=== PATIENT | female | born 1965 | race Caucasian/White ===

== ENCOUNTER 2017-01-23 20:44 | Inpatient (IN) | payer BC ==
[~2017-01-23] VITALS: Ht 154.9 cm; Wt 81.9 kg
[2017-01-23 21:37] LABS: HEMATOCRIT 41.7 % (37-47); MEAN CELL VOLUME 90.1 fL (80-100); MEAN CORPUSCULAR HGB CONC 33.3 g/dl (32-36); PLATELET COUNT 325 K/uL (130-400); RED BLOOD COUNT 4.63 M/uL (4.2-5.4); WHITE BLOOD COUNT 11.44 K/uL (4.8-10.8)
[2017-01-23 21:45] LABS: PROTHROMBIN TIME (PATIENT) 10.5 SECONDS (9.0-12.0)
--- NOTE | 2017-01-23 21:52 | DIAGNOSTIC IMAGING REPORT ---
HEAD WITHOUT CONTRAST (CT) CT DOSE: 614.27 mGy.cm HISTORY: Mental status change ams TECHNIQUE: Multiaxial CT images of the head were performed without the use of intravenous contrast. A dose lowering technique was utilized adhering to the principles of ALARA. Comparison: None. Findings: Sclerosis left mastoid air cells. Moderate mucosal thickening of the sphenoid and posterior ethmoid sinuses. The calvarium and skull base are intact. The ventricles and sulci are within normal limits. There is no mass, hematoma, midline shift, or acute infarct. Impression: No acute intracranial abnormality. The above report was generated using voice recognition software. It may contain grammatical, syntax or spelling errors. Electronically signed by: Andres Mckeon M.D. 01/23/2017 9:51 PM Dictated Date/Time: 01/23/2017 9:50 PM
[2017-01-23 21:53] LABS: BUN/CREATININE RATIO 19.6 (10-20); CALCIUM 8.3 mg/dl (8.5-10.1); CREATININE 1.3 mg/dl (0.60-1.20); POTASSIUM 3.7 mmol/L (3.5-5.1)
[2017-01-23 21:57] LABS: ALB/GLOB RATIO 0.5 (0.9-2)
[2017-01-23] MEDS ORDERED: ACET-1256 PO (22:33)
[2017-01-23] MEDS ORDERED: METO25TA3 PO (22:33)
[2017-01-23] MEDS ORDERED: FLUO0.059 TOP (22:33)
[2017-01-23] MEDS ORDERED: IPRASOL4 INH (22:33)
[2017-01-23] MEDS ORDERED: NVLGI/PEN SQ (22:33)
[2017-01-23] MEDS ORDERED: FAMO20TA11 PO (22:33)
[2017-01-23] MEDS ORDERED: FRS/40 PO (22:33)
[2017-01-23] MEDS ORDERED: DOCU100C31 PO (22:33)
[2017-01-23] MEDS ORDERED: SENN8.6T36 PO (22:33)
[2017-01-23] MEDS ORDERED: OXYC1TAB3 PO (22:33)
[2017-01-23] MEDS ORDERED: SYN100 PO (22:33)
[2017-01-23] MEDS ORDERED: ASPI81TA28 PO (22:33)
[2017-01-23] MEDS ORDERED: GLIM2TAB2 PO (22:33)
[2017-01-23] MEDS ORDERED: LISI-725 PO (22:33)
[2017-01-23] MEDS ORDERED: ATOR-24 PO (22:33)
[2017-01-23 22:50] LABS: MANUAL MICROSCOPIC REQUIRED? YES; URINE APPEARANCE SL CLOUDY (CLEAR); URINE BILIRUBIN NEG (NEG); URINE COLOR YELLOW; URINE NITRITE NEG (NEG); UROBILINOGEN NEG (NEG)
[2017-01-23 22:52] LABS: REVIEW REQ? NO
[2017-01-23] MEDS ORDERED: ASPIRIN 81 MG CHEW PO STA (23:51)
[2017-01-23] MEDS ORDERED: LEVAQUIN 750MG / 150ML D5W IV STA (23:51)
[2017-01-24] VITALS (14 sets, daily range): BP systolic 151–193; BP diastolic 85–105; PULSE 62–93; TEMP 36.5–37.5; O2SAT 90–98; BMI 32.6
[2017-01-24 00:18] LABS: URINE APPEARANCE CLOUDY (CLEAR); URINE BILIRUBIN NEG (NEG); URINE COLOR YELLOW; URINE EPITHELIAL CELL AUTO >30 /lpf (0-5); URINE NITRITE NEG (NEG); URINE PH 6.5 (4.5-7.5); URINE SPECIFIC GRAVITY 1.025 (1.000-1.030); UROBILINOGEN NEG (NEG); ZZUR CULT IF INDIC CLEAN CATCH YES
[2017-01-24 00:20] LABS: MANUAL MICROSCOPIC REQUIRED? NO; REVIEW REQ? NO
[2017-01-24] MEDS ORDERED: ONDANSETRON INJ 2 MG/ML 2 ML VIAL IV PRN (00:45)
[2017-01-24] MEDS ORDERED: OXYCODONE HCL IR 5 MG TAB (IMMEDIATE RELEASE) PO PRN (01:00)
[2017-01-24] MEDS ORDERED: ACETAMINOPHEN 500 MG TAB PO PRN (01:00)
[2017-01-24] MEDS ORDERED: IV FLUIDS COMPLETED PRN (01:45)
[2017-01-24] MEDS: NSS + 20MEQ KCL 1000ML 1,000 ML IV SCH ×2 (01:58→14:21)
--- NOTE | 2017-01-24 02:12 | HISTORY & PHYSICAL EXAMINATION ---
DATE OF ADMISSION: 01/24/2017 PRIMARY CARE PROVIDER: Dr. Gutiérrez from [place]. CHIEF COMPLAINT: Transient confusion with cough and weakness noted this evening. HISTORY OF PRESENT COMPLAINT: She is a 51-year-old female with significant past medical history of type 2 diabetes with retinopathy, moderate COPD with ongoing smoking, recent history of closed nondisplaced fracture of the cervical vertebra and multiple rib fractures and fibular fracture following a fall that happened on 01/13/2017, also hypothyroidism and reflux disease. Apparently was in [facility] following transfer from [place] after the multiple fractures following injury. This afternoon or this evening she was noted to have acute confusion in the [facility] with some slurring of speech without any significant lab abnormality. From that point, she was transferred to [facility] Emergency Room for further evaluation. In the Emergency Room, she was alert, awake, oriented. She did not have any focal neurological deficit. She was generally weak and she was noted to have acute bronchitis/pneumoniae involving the right upper lobe with slight elevation of the white count. From that point, she was started with intravenous antibiotic and she was advised for admission. PAST MEDICAL HISTORY: Significant for type 2 diabetes with retinopathy, moderate COPD, tobacco use disorder, recent history of closed cervical fracture, multiple rib fractures, and also fracture of the left humerus, hypothyroidism, GERD, hyperlipidemia. PAST SURGICAL HISTORY: Significant for foot and toe surgery on the left side and division of ankle joint on left side in 1997. FAMILY HISTORY: Mother has diabetes and mother has high blood pressure as well. Father had lung disorder. SOCIAL HISTORY: She is . She resides in [facility] following that multiple trauma. She smokes over 1-1/2 pack per day for the last 20 years. She uses alcohol occasionally, and recently her activities of daily living limited due to multiple fractures as mentioned earlier. ALLERGIES: ADHESIVES. MEDICATIONS: She has been taking Tylenol 1000 mg q. 8 hourly as needed, aspirin 81 mg daily, Lipitor 40 mg daily, docusate sodium 100 mg twice daily, Pepcid 20 mg twice daily, Lasix 40 mg daily, glimepiride 2 mg daily, NovoLog FlexPen as directed, DuoNeb nebulized solutions 3 mL q. 4 hourly as needed, Synthroid 100 mcg daily, lisinopril 20 mg pill 60 mg daily, Toprol-XL 75 mg q. 12 hours, Roxicodone 5 mg q. 4 hourly p.r.n., senna 1 tablet p.o. at bedtime, and fluocinonide 0.05% gel 1 dose topical b.i.d. REVIEW OF SYSTEMS: Other systemic review unremarkable except those mentioned in history of present complaint. PHYSICAL EXAMINATION: GENERAL: On examination in the Emergency Room, she has a cervical collar-1 and that will be there for 6 weeks in total. She does have some discomfort from that collar, but no other acute symptoms. VITAL SIGNS: Temperature 37.0, pulse 64, blood pressure 140/83, saturation 98% on room air. HEENT: Remarkable for cervical collar. CHEST: Decreased breath sounds with occasional crackles at the bases. HEART: S1, S2 regular. No murmur. ABDOMEN: Soft, benign, nontender, no organomegaly. Bowel sounds present. EXTREMITIES: Trace edema bilaterally. MUSCULOSKELETAL SYSTEM: Did not show any acute arthritis. CENTRAL NERVOUS SYSTEM: She was alert, awake, oriented. She has minimal dysphagia, but does not have any problem with swallowing. She is generally weak but does not have any focal neurological deficit. LABORATORY DATA: Noted today white count was 11.44, H&H of 13.9/41.7, platelets 325. Sodium 139, potassium 3.7, chloride 102, carbon dioxide 28, BUN 26, creatinine 1.30, her creatinine noted 1.4 on 18 of January. Random glucose 153, calcium 8.3, albumin was 1.9. Coagulation profile unremarkable. UA examination showed WBC more than 30, RBC more than 30, occult blood positive, leukocyte esterase negative, bacteria negative. Chest x-ray: Report is pending, but did show questionable haziness involving the right upper lobe and may have chronic bronchitic changes. EKG: Was in sinus rhythm, rate of 62 per minute, normal axis and no significant ST-T wave changes. CT scan of the head: No acute intracranial abnormality. IMPRESSION AND PLAN: 1. Questionable acute confusion, resolved completely now, does not have any neuro deficit. CT scan has been negative, cannot definitely pinpoint the cause.Will observe in Tele. 2. Chronic obstructive pulmonary disease with exacerbation. May have right upper lobe pneumonia. Blood culture was taken and she was started with intravenous Levaquin which will be continued. She will get bronchodilator and small dose of Solu-Medrol. 3. Hypertension. Blood pressure seems to be stable. Continue with current medication. 4. Type 2 diabetes. Continue with insulin and put her on sliding scale coverage while in the hospital. 5. Status post fall with multiple fractures involving the ribs, cervical spine and also fibula, humerus on the left side. No acute findings at this time. Continue with pain medications and keep the cervical collar as it is. 6. Hypothyroidism. Continue with replacement therapy. 7. Gastroesophageal reflux disease. Continue with Pepcid. 8. Hyperlipidemia. Continue with statin. 9. Deep venous thrombosis prophylaxis with subcutaneous heparin. 10. Gastrointestinal prophylaxis with Pepcid. 11. Code status. She will be a full code. In my clinical assessment, the beneficiary meets criteria as per CMS for 2 [facility] hospital. MTDD
--- NOTE | 2017-01-24 02:26 | EMERGENCY ROOM VISIT NOTE ---
History Report prepared by Jackson: Erika Saenz Under the Supervision of: Dr. Shiv Dixon M.D. First contact with patient: 21:18 Chief Complaint: NEURO SYMPTOMS Stated Complaint: ALTERED MENTAL STATUS, CVA SX, HEADACHE Nursing Triage Summary: patient at [facility] for rehab after fall/cva. today staff noticed patient to be "slightly altered" and speech was as fluent as normal. patient also has complaint of headache. EMS states patient was "slightly aphasic" but according to [facility] that is her baseline now. unknown last known well History of Present Illness The patient is a 51 year old female who presents to the Emergency Room with complaints of an episode of neurological symptoms starting this evening. The patient's family states that the patient has had TIAs in the past. They state that she fell down stairs two weeks ago and was life flighted to [place]. They reports that she fractured her neck, left arm, left knee cap, 4-5 ribs, and her spine. They report that she was moved to [facility] 5 days ago and things were going well. The patient's family complains that the patient is having slurred speech more than usual and confusion. The patient complains of a headache, a cough, and notes that she vomited 3 days ago. The patient currently rates her pain as a 4/10 in severity. The patient denies shortness of breath, chest pain, nausea, diarrhea, and a change in appetite. Source of History: patient, family Onset: this evening Position: other (global) Symptom Intensity: 4/10 Quality: other (global) Timing: other (episode) Associated Symptoms: + headache, + cough, + vomiting, No chest pain, No SOB , No nausea, No diarrhea Note: The patient's family complains of slurred speech and confusion. The patient denies a change in appetite. Review of Systems See HPI for pertinent positives and negatives. A total of ten systems were reviewed and were otherwise negative. Past Medical & Surgical Medical Problems: (1) Change in mental state (2) COPD exacerbation (3) Diabetes (4) Hypothyroidism Family History No pertinent family history Social History Smoking Status: Current Every Day Smoker Alcohol Use: none Drug Use: none Marital Status: Housing Status: assisted Current/Historical Medications Scheduled Aspirin (Aspirin Ec), 81 MG PO DAILY Atorvastatin (Lipitor), 40 MG PO DAILY Docusate Sodium (Docusate Sodium), 100 MG PO BID Famotidine (Pepcid), 20 MG PO Q12 Fluocinonide (Fluocinonide), 1 DOSE TOP BID Furosemide (Lasix), 40 MG PO QAM Glimepiride (Glimepiride), 2 MG PO QAM Insulin Aspart (Novolog Flexpen), 1 DOSE SQ HS Ipratropium-Albuterol (Duoneb), 1 TREATMENT INH Q4H Levothyroxine Sodium (Synthroid), 200 MCG PO QAM Lisinopril (Zestril), 60 MG PO DAILY Metoprolol Succinate (Toprol Xl), 75 MG PO Q12 Sennosides-Docusate Sodium (Docusate Sodium/Senna), 1 TAB PO HS Scheduled PRN Acetaminophen (Tylenol), 1,000 MG PO Q8 PRN for Pain Oxycodone Ir (Roxicodone Ir), 5 MG PO Q4 PRN for Pain Allergies Coded Allergies: Adhesives (Unverified Allergy, Unknown, TEARS SKIN OFF, 01/23/17) Physical Exam Vital Signs Date Time Temp Pulse Resp B/P (MAP) Pulse Ox O2 Delivery O2 Flow Rate FiO2 01/23/17 23:14 64 20 140/83 98 Room Air 01/23/17 22:44 63 22 01/23/17 21:23 Room Air 01/23/17 21:14 62 18 93 Room Air 01/23/17 20:58 62 01/23/17 20:54 37.0 63 18 149/109 93 Room Air 01/23/17 20:49 149/109 Physical Exam GENERAL: Awake, alert, uncomfortable-appearing, in no distress HENT: Normocephalic, atraumatic. Oropharynx unremarkable. Dry mucus membranes. EYES: Normal conjunctiva. Sclera non-icteric. NECK: Supple. No nuchal rigidity. FROM. No JVD. [place] J collar in place RESPIRATORY: Clear to auscultation. CARDIAC: Regular rate, normal rhythm. Extremities warm and well perfused. Pulses equal. ABDOMEN: Soft, non-distended. No tenderness to palpation. No rebound or guarding. No masses. RECTAL: Deferred. MUSCULOSKELETAL: Chest examination reveals no tenderness. The back is symmetrical on inspection without obvious abnormality. There is no CVA tenderness to palpation. No joint edema. LOWER EXTREMITIES: Calves are equal size bilaterally and non-tender. 2+ edema. No discoloration. Abrasions to left knee cap. NEURO: Normal sensorium. No sensory or motor deficits noted. Speech somewhat thick. Unable to assess left leg drift secondary to fracture. No drift in UE. Cranial nerves 2-12 intact. Unable to test SCM bilaterally secondary to cervical collar. SKIN: No rash or jaundice noted. Medical Decision & Procedures ER Provider Diagnostic Interpretation: Radiology results as stated below per my review and radiologist interpretation: HEAD WITHOUT CONTRAST (CT) CT DOSE: 614.27 mGy.cm HISTORY: Mental status change ams TECHNIQUE: Multiaxial CT images of the head were performed without the use of intravenous contrast. A dose lowering technique was utilized adhering to the principles of ALARA. Comparison: None. Findings: Sclerosis left mastoid air cells. Moderate mucosal thickening of the sphenoid and posterior ethmoid sinuses. The calvarium and skull base are intact. The ventricles and sulci are within normal limits. There is no mass, hematoma, midline shift, or acute infarct. Impression: No acute intracranial abnormality. The above report was generated using voice recognition software. It may contain grammatical, syntax or spelling errors. Electronically signed by: Andres Mckeon M.D. 01/23/2017 9:51 PM Dictated Date/Time: 01/23/2017 9:50 PM Chest x-ray. Findings: A chest x-ray was performed and revealed no pneumothorax , effusion, pulmonary edema, free air under the diaphragm, or wide mediastinum. Right upper lobe infiltrate. Laboratory Results 01/23/17 21:20 01/23/17 21:20 Test 01/23/17 21:20 01/23/17 23:44 Red Blood Count 4.63 M/uL (4.2-5.4) Mean Corpuscular Volume 90.1 fL (80-100) Mean Corpuscular Hemoglobin 30.0 pg (25-34) Mean Corpuscular Hemoglobin Concent 33.3 g/dl (32-36) RDW Standard Deviation 46.2 fL (36.4-46.3) RDW Coefficient of Variation 14.0 % (11.5-14.5) Mean Platelet Volume 11.0 fL (7.4-10.4) Prothrombin Time 10.5 SECONDS (9.0-12.0) Prothromb Time International Ratio 1.0 (0.9-1.1) Activated Partial Thromboplast Time 25.4 SECONDS (21.0-31.0) Partial Thromboplastin Ratio 1.0 Anion Gap 9.0 mmol/L (3-11) Est Creatinine Clear Calc Drug Dose 48.8 ml/min Estimated GFR () 55.4 Estimated GFR (Non- 47.8 BUN/Creatinine Ratio 19.6 (10-20) Calcium Level 8.3 mg/dl (8.5-10.1) Total Bilirubin 0.2 mg/dl (0.2-1) Aspartate Amino Transf (AST/SGOT) 16 U/L (15-37) Alanine Aminotransferase (ALT/SGPT) 23 U/L (12-78) Alkaline Phosphatase 108 U/L (45-117) Total Protein 5.4 gm/dl (6.4-8.2) Albumin 1.9 gm/dl (3.4-5.0) Globulin 3.5 gm/dl (2.5-4.0) Albumin/Globulin Ratio 0.5 (0.9-2) Urine Color YELLOW Urine Appearance CLOUDY (CLEAR) Urine pH 6.5 (4.5-7.5) Urine Specific [place] 1.025 (1.000-1.030) Urine Protein 4+ (NEG) Urine Glucose (UA) 2+ (NEG) Urine Ketones NEG (NEG) Urine Occult Blood 2+ (NEG) Urine Nitrite NEG (NEG) Urine Bilirubin NEG (NEG) Urine Urobilinogen NEG (NEG) Urine Leukocyte Esterase NEG (NEG) Urine WBC (Auto) >30 /hpf (0-5) Urine RBC (Auto) >30 /hpf (0-4) Urine Hyaline Casts (Auto) 10-30 /lpf (0-5) Urine Epithelial Cells (Auto) >30 /lpf (0-5) Urine Bacteria (Auto) NEG (NEG) Laboratory results reviewed by me Medications Administered Medications (Trade) Dose Ordered Sig/Corie Route Start Time Stop Time Status Last Admin Dose Admin Aspirin (Aspirin Chew) 324 mg NOW STAT PO 01/23/17 23:51 01/23/17 23:53 DC 01/24/17 00:23 324 MG Levofloxacin (Levaquin / D5W) 750 mg NOW STAT IV 01/23/17 23:51 01/23/17 23:53 DC 01/24/17 00:22 750 MG ECG Indication: altered mental status Rate (beats per minute): 62 Rhythm: normal sinus Findings: no acute ischemic change, no ectopy ED Course 2128: The patient was evaluated in room C9. A complete history and physical exam was performed. 2350: Ordered Levofloxacin 750 mg IV, Aspirin 324 mg PO. 2354: Discussed the patient's case with Dr. Jimenez. The patient will be evaluated for further treatment and disposition. Medical Decision Prior records/ancillary studies reviewed and summarized above. Nursing notes reviewed and agree them. Additional history obtained from family.. The patient's history was concerning for altered mental status, slurred speech, headache, vomiting, and recent stroke . Differential diagnosis: Etiologies such as CVA, TIA, ICH, infection, hypoglycemia, electrolyte abnormalities, cardiac sources, intracerebral event, toxicologic, neurologic, as well as others were entertained. Physical examination: As above. The patient had moderate rhonchi and cough present. ER treatment provided: IV Lock Normal saline hydration . Oral aspirin IV Levaquin On reassessment the patient felt better. Diagnostics interpretation by me: ECG: Normal as above The labs revealed mild leukocytosis on CBC. Chemistry panel was unremarkable. Urinalysis was somewhat concerning.. Imaging studies: Chest x-ray and CT scan as above The patient has a leukocytosis and productive cough. Chest x-ray is concerning for right upper lobe infiltrate. She was given Levaquin. The patient had strokelike symptoms but seems to be doing better now per family. This may be a TIA. The patient will need further evaluation and management in the hospital. Family was in agreement as was the patient. Consultation: A consultation was placed with the hospitalist. The case was discussed and diagnostics were reviewed. The patient was evaluated in the ER for further treatment. Consults Time Called: [phone] Consulting Physician: Dr. Jimenez Returned Call: [phone] Discussed the patient's case with Dr. Jimenez. The patient will be evaluated for further treatment and disposition. Impression Primary Impression: ALTERED MENTAL STATUS, UNSPECIFIED Scribe Attestation The scribe's documentation has been prepared under my direction and personally reviewed by me in its entirety. I confirm that the note above accurately reflects all work, treatment, procedures, and medical decision making performed by me. Departure Information Dispostion Being Evaluated By Hospitalist Patient Instructions My [facility]
[2017-01-24] MEDS: ALBUT/IPRATROP 3MG/0.5MG NEB 3 ML VIAL INH SCH ×6 (03:32→23:09)
[2017-01-24 05:51] LABS: MEAN CELL VOLUME 91.1 fL (80-100); MEAN CORPUSCULAR HEMOGLOBIN 29.4 pg (25-34); MEAN CORPUSCULAR HGB CONC 32.3 g/dl (32-36); MEAN PLATELET VOLUME 11.1 fL (7.4-10.4); PLATELET COUNT 298 K/uL (130-400); RED BLOOD COUNT 4.28 M/uL (4.2-5.4); WHITE BLOOD COUNT 10.69 K/uL (4.8-10.8)
[2017-01-24] MEDS: LEVOTHYROXINE 100 MCG TAB PO SCH (06:12)
[2017-01-24] MEDS: HEPARIN SOD 5000 UNIT/0.5 ML CARP SQ SCH ×3 (06:19→21:27)
--- NOTE | 2017-01-24 06:30 | DIAGNOSTIC IMAGING REPORT ---
CHEST ONE VIEW PORTABLE CLINICAL HISTORY: fever cough COMPARISON STUDY: No previous studies for comparison. FINDINGS: The bones soft tissues and hemidiaphragms are normal. The cardiomediastinal silhouette is normal. The lungs are clear. The pulmonary vasculature is normal. IMPRESSION: Negative chest. The above report was generated using voice recognition software. It may contain grammatical, syntax or spelling errors. Electronically signed by: Andres Mckeon M.D. 01/24/2017 6:28 AM Dictated Date/Time: 01/24/2017 6:28 AM
[2017-01-24 06:38] LABS: CALCIUM 7.9 mg/dl (8.5-10.1); CREATININE 1.2 mg/dl (0.60-1.20); MAGNESIUM 2.1 mg/dl (1.8-2.4); POTASSIUM 3.8 mmol/L (3.5-5.1)
[2017-01-24 06:39] LABS: PHOSPHORUS 3.4 mg/dl (2.5-4.9)
[2017-01-24] MEDS: DOCUSATE SODIUM 100 MG CAP PO SCH ×3 (09:00→21:21)
[2017-01-24] MEDS: GLIMEPIRIDE 2 MG TAB PO SCH (09:12)
[2017-01-24] MEDS: METHYLPREDNISOLONE IV 20 MG in SYRINGE 0 ML IV SCH ×3 (09:12→21:21)
[2017-01-24] MEDS: FAMOTIDINE 20 MG TAB PO SCH ×2 (09:12→21:57)
[2017-01-24] MEDS: ASPIRIN 81 MG ECTAB PO SCH (09:13)
[2017-01-24] MEDS: ATORVASTATIN 20 MG TAB PO SCH (09:13)
[2017-01-24] MEDS: METOPROLOL SUCC 25MG EXT REL TAB PO SCH ×2 (09:13→20:00)
[2017-01-24] MEDS: LISINOPRIL 20 MG TAB PO SCH (09:13)
[2017-01-24] MEDS ORDERED: DEXTROSE 50% 50 ML SYR IV PRN (17:00)
[2017-01-24] MEDS ORDERED: GLUCOSE 40% GEL 15 GM TUBE PO PRN (17:00)
[2017-01-24] MEDS ORDERED: GLUCOSE 10 TABS/TUBE PO PRN (17:00)
[2017-01-24] MEDS ORDERED: GLUCAGON FOR INJ 1 MG VIAL SQ PRN (17:00)
--- NOTE | 2017-01-24 18:06 | DIAGNOSTIC IMAGING REPORT ---
Brain MRI WITHOUT CONTRAST HISTORY: altered mental status, aphasia TECHNIQUE: Multiplanar multisequence MRI of the brain was performed without the use of contrast. COMPARISON STUDY: Head CTA 1017. FINDINGS: There is a 9 mm focus of restricted diffusion within the posterior limb of the left internal capsule. This is consistent with an acute infarct. There is also a punctate focus of possible restricted diffusion within the posterior limb of the right internal capsule. This may also represent a small acute infarct. There are old lacunar infarcts seen within the right thalamus. The ventricles and sulci are within normal limits. Moderate mucosal thickening and a small fluid level within the sphenoid sinuses. A few partially opacified mastoid air cells. The major vascular flow-voids at the skull base are well-maintained. The midline structures are intact. No mass, hematoma, or midline shift. A few scattered foci of T2 hyperintensity seen within the periventricular white matter. This is nonspecific but favors mild microvascular ischemic change. IMPRESSION: 1. A small acute infarct within the posterior limb of the left internal capsule. There is also suggestion of a punctate acute infarct within the posterior limb of the right internal capsule. 2. Old lacunar infarcts within the right thalamus. 3. Acute on chronic sphenoid sinusitis. Electronically signed by: Jeffrey Meza M.D. 01/24/2017 6:05 PM Dictated Date/Time: 01/24/2017 6:00 PM
--- NOTE | 2017-01-24 18:06 | DIAGNOSTIC IMAGING REPORT ---
MRA OF THE INTRACRANIAL CIRCULATION WITHOUT CONTRAST CLINICAL HISTORY: Neck injury, aphasia, r/o dissection. COMPARISON STUDY: None. TECHNIQUE: Utilizing a 1.5 [place] magnet and 3-D [id number] technique, unenhanced MRA of the intracranial circulation was obtained. FINDINGS: This study is mildly compromised by motion artifact. No aneurysm is identified although sensitivity for detection of small aneurysms is diminished on this exam due to motion artifact. The right A1 segment is diminutive, likely on a congenital basis. The posterior circulation is intact. There is an anterior communicating artery and bilateral posterior communicating arteries. There is slight asymmetric decreased caliber of the intracranial portion of the right internal carotid artery which is chronic and of doubtful significance. This is likely due to a dominant left A1 segment. No dissection is identified on this unenhanced exam. IMPRESSION: 1. No abrupt vessel cut off or intracranial aneurysm. 2. 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 3. Mild intracranial vascular irregularity likely due to atherosclerosis. Electronically signed by: Lui Meehan M.D. 01/24/2017 6:05 PM Dictated Date/Time: 01/24/2017 5:33 PM
[2017-01-24] MEDS: INSULIN ASPART 100 UNITS/ML 3 ML PEN SC SCH ×2 (18:07→21:27)
--- NOTE | 2017-01-24 18:32 | DIAGNOSTIC IMAGING REPORT ---
NECK MRA HISTORY: Dizziness. neck injury, aphasia, r/o dissection TECHNIQUE: [id number] and gadolinium-enhanced MRA of the neck was performed both before and after the intravenous administration of contrast. All measurements were calculated based on NASCET criteria. COMPARISON STUDY: None. FINDINGS: The aortic arch and proximal great vessels are widely patent. There is no significant stenosis, occlusion, or dissection identified within the bilateral common carotid, internal carotid, or vertebral arteries. IMPRESSION: No significant stenosis, occlusion, or dissection identified within the carotid or vertebral arteries. Electronically signed by: Jeffrey Meza M.D. 01/24/2017 6:31 PM Dictated Date/Time: 01/24/2017 6:29 PM
--- NOTE | 2017-01-24 20:19 | Progress Note ---
Medicine Progress Note Date & Time of Visit: Jan 24, 2017 at 15:30 . Subjective Feels better. Still having some difficulty with word finding. No headaches. No visual changes. No focal motor weakness. No chest pain or palpitations. No cough or shortness of breath. No nausea or vomiting. . Objective Last 8 Hrs Date Time Temp Pulse Resp B/P (MAP) Pulse Ox O2 Delivery O2 Flow Rate FiO2 01/24/17 19:49 36.5 93 22 193/98 (129) 92 Room Air 190/100 (130) 01/24/17 19:17 91 16 91 Room Air 01/24/17 16:18 Room Air 01/24/17 15:50 36.8 87 185/93 (123) 90 Room Air 86 176/93 (120) 84 167/91 (116) 01/24/17 15:09 87 16 91 Room Air 01/24/17 12:39 Room Air Physical Exam: General- no distress Neck- wearing cervical collar Lungs- clear Heart- RRR Abdomen- soft, nontender Extremities- no pretibial edema or calf tenderness Neuro- alert, oriented; PERRL, EOMI; mild expressive aphasia +/- mild dysarthria ; no facial palsy; tongue midline; motor strength upper and lower extremities 5/ 5; no difficulty with finger to nose bilaterally . Laboratory Results: Last 24 Hours Test 01/23/17 21:20 01/23/17 22:42 01/23/17 23:44 01/24/17 05:23 White Blood Count 11.44 K/uL 10.69 K/uL Red Blood Count 4.63 M/uL 4.28 M/uL Hemoglobin 13.9 g/dL 12.6 g/dL Hematocrit 41.7 % 39.0 % Mean Corpuscular Volume 90.1 fL 91.1 fL Mean Corpuscular Hemoglobin 30.0 pg 29.4 pg Mean Corpuscular Hemoglobin Concent 33.3 g/dl 32.3 g/dl RDW Standard Deviation 46.2 fL 47.3 fL RDW Coefficient of Variation 14.0 % 14.2 % Platelet Count 325 K/uL 298 K/uL Mean Platelet Volume 11.0 fL 11.1 fL Prothrombin Time 10.5 SECONDS Prothromb Time International Ratio 1.0 Activated Partial Thromboplast Time 25.4 SECONDS Partial Thromboplastin Ratio 1.0 Sodium Level 139 mmol/L 140 mmol/L Potassium Level 3.7 mmol/L 3.8 mmol/L Chloride Level 102 mmol/L 105 mmol/L Carbon Dioxide Level 28 mmol/L 30 mmol/L Anion Gap 9.0 mmol/L 5.0 mmol/L Blood Urea Nitrogen 26 mg/dl 25 mg/dl Creatinine 1.30 mg/dl 1.20 mg/dl Est Creatinine Clear Calc Drug Dose 48.8 ml/min 53.1 ml/min Estimated GFR () 55.4 61.0 Estimated GFR (Non- 47.8 52.7 BUN/Creatinine Ratio 19.6 21.0 Random Glucose 153 mg/dl 133 mg/dl Calcium Level 8.3 mg/dl 7.9 mg/dl Total Bilirubin 0.2 mg/dl Aspartate Amino Transf (AST/SGOT) 16 U/L Alanine Aminotransferase (ALT/SGPT) 23 U/L Alkaline Phosphatase 108 U/L Total Protein 5.4 gm/dl Albumin 1.9 gm/dl Globulin 3.5 gm/dl Albumin/Globulin Ratio 0.5 Urine Color YELLOW YELLOW Urine Appearance SL CLOUDY CLOUDY Urine pH 7.0 6.5 Urine Specific [place] 1.020 1.025 Urine Protein 3+ 4+ Urine Glucose (UA) 1+ 2+ Urine Ketones NEG NEG Urine Occult Blood 2+ 2+ Urine Nitrite NEG NEG Urine Bilirubin NEG NEG Urine Urobilinogen NEG NEG Urine Leukocyte Esterase TRACE NEG Urine WBC (Auto) >30 /hpf Urine RBC (Auto) >30 /hpf Urine Hyaline Casts (Auto) 10-30 /lpf Urine Epithelial Cells (Auto) >30 /lpf Urine Bacteria (Auto) NEG Phosphorus Level 3.4 mg/dl Magnesium Level 2.1 mg/dl Test 01/24/17 06:53 01/24/17 11:35 01/24/17 16:21 Bedside Glucose 124 mg/dl 189 mg/dl 244 mg/dl Date/Time Source Procedure Growth Status 01/24/17 00:14 Blood Blood Culture Pending Received 01/24/17 00:02 Blood Blood Culture Pending Received 01/23/17 23:44 Urine , Clean Catch Urine Culture Pending Received Assessment & Plan POSSIBLE STROKE CT negative. Check MRI. RECENT INJURY CERVICAL SPINE Continue cervical collar. HYPERTENSION Continue lisinopril. COPD Respiratory status stable. DM TYPE 2 Continue glimepiride + insulin coverage as necessary. HYPOTHYROIDISM Continue levothyroxine. DYSLIPIDEMIA Continue atorvastatin. VTE PROPHYLAXIS DISPOSITION To be determined. . Current Inpatient Medications: Current Inpatient Medications Medications (Trade) Dose Ordered Sig/Corie Route Start Time Stop Time Status Last Admin Dose Admin Heparin Sodium (Porcine) (Heparin Sq 5000 Unit/0.5ml) 5,000 unit Q8 SQ 01/24/17 06:00 02/23/17 05:59 01/24/17 14:27 5,000 UNIT Potassium Chloride/Sodium Chloride 1,000 ml @ 75 mls/hr [id number] IV 01/24/17 01:30 02/23/17 01:29 01/24/17 14:21 75 MLS/HR Ondansetron HCl (Zofran Inj) 4 mg Q6H PRN IV 01/24/17 00:45 02/23/17 00:44 Acetaminophen (Tylenol Tab) 1,000 mg Q8 PRN PO 01/24/17 01:00 02/23/17 00:59 Aspirin (Ecotrin Tab) 81 mg DAILY PO 01/24/17 09:00 02/23/17 08:59 01/24/17 09:13 81 MG Atorvastatin Calcium (Lipitor Tab) 40 mg DAILY PO 01/24/17 09:00 02/23/17 08:59 01/24/17 09:13 40 MG Docusate Sodium (coLACE CAP) 100 mg BID PO 01/24/17 09:00 02/23/17 08:59 Famotidine (Pepcid Tab) 20 mg Q12 PO 01/24/17 09:00 02/23/17 08:59 01/24/17 09:12 20 MG Glimepiride (Amaryl Tab) 2 mg QAM PO 01/24/17 09:00 02/23/17 08:59 01/24/17 09:12 2 MG Albuterol/ Ipratropium (Duoneb) 3 ml Q4R INH 01/24/17 04:00 02/23/17 03:59 01/24/17 19:17 3 ML Levothyroxine Sodium (Synthroid Tab) 200 mcg DAILYBB PO 01/24/17 06:00 02/23/17 06:59 01/24/17 06:12 200 MCG Lisinopril (Zestril Tab) 60 mg DAILY PO 01/24/17 09:00 02/23/17 08:59 01/24/17 09:13 60 MG Metoprolol Succinate (Toprol Xl Tab) 75 mg Q12 PO 01/24/17 09:00 02/23/17 08:59 01/24/17 09:13 75 MG Oxycodone HCl (Roxicodone Immediate Rel Tab) 5 mg Q4 PRN PO 01/24/17 01:00 02/07/17 00:59 Senna/Docusate Sodium (Senokot S Tab) 1 tab HS PO 01/24/17 21:00 02/23/17 20:59 Miscellaneous Information (Order Awaiting Action) 1 ea QS N/A 01/24/17 08:00 02/23/17 07:59 Methylprednisolone Sodium Succinate 20 mg/Syringe 0.32 ml @ 1.5 mls/min TID IV 01/24/17 09:00 02/23/17 08:59 01/24/17 14:21 1.5 MLS/MIN Levofloxacin 500 mg/Prmx 100 ml @ 100 mls/hr Q24H IV 01/25/17 01:00 01/30/17 01:59 Miscellaneous (Iv Fluids Completed) 1 ea PRN PRN N/A 01/24/17 01:45 01/24/18 01:44 Insulin Aspart (novoLOG ASPART) SLIDING SCALE G... ACHS SC 01/24/17 21:00 02/23/17 20:59 01/24/17 18:07 4 UNITS Glucose (Glucose 40% Gel) 15-30 GRAMS 15 GRAMS... UD PRN PO 01/24/17 17:00 02/23/17 16:59 Glucose (Glucose Chew Tab) 4-8 Tablets 4 Tabl... UD PRN PO 01/24/17 17:00 02/23/17 16:59 Dextrose (Dextrose 50% 50ML Syringe) 25-50ML OF 50% DW IV FOR... UD PRN IV 01/24/17 17:00 02/23/17 16:59 Glucagon (Glucagon Inj) 1 mg UD PRN SQ 01/24/17 17:00 02/23/17 16:59
[2017-01-24] MEDS ORDERED: PHARMACIST DISCHARGE MED REC CONSULT PRN (20:45)
[2017-01-24] MEDS ORDERED: INSULIN ASPART 100 UNITS/ML 3 ML PEN SQ SCH (21:00)
[2017-01-24] MEDS: DOCUSATE SODIUM/SENNA 50/8.6MG TAB PO SCH (21:22)
--- NOTE | 2017-01-24 21:22 | Neurology Progress Notes ---
Neurology Progress Note Date of Service Jan 24, 2017. Subjective H and P from earlier not yet transcribed. MRI brain reviewed and shows bl acute infarcts in the posterior limb of the internal capsule. I have reviewed MRI from [facility] 01/17 which shows acute infarcts in the bl lentiform nucleus. It is hard to compare studies done at two facilities. The orientation of the slices is not the same, but the infarcts are in the same general region. There has been an increase in size compared to 01/17 on the abnl on the left. Radiology at [facility] includes traumatic injury in the differential. There is no high grade stenosis or dissection in the neck or COW. Since the pt has had transient sx I would add plavix and complete vascular santana with a TTE with bubble study, poss SANTA (hx of significant trauma, further eval arch of aorta, and monitoring. SILKE Londono MD Objective Date Time Temp Pulse Resp B/P (MAP) Pulse Ox O2 Delivery O2 Flow Rate FiO2 01/24/17 20:00 Room Air 01/24/17 19:49 36.5 93 22 193/98 (129) 92 Room Air 190/100 (130) 01/24/17 19:17 91 16 91 Room Air 01/24/17 16:18 Room Air 01/24/17 15:50 36.8 87 185/93 (123) 90 Room Air 86 176/93 (120) 84 167/91 (116) 01/24/17 15:09 87 16 91 Room Air 01/24/17 12:39 Room Air 01/24/17 11:08 78 16 90 Room Air 01/24/17 11:00 36.6 66 20 172/92 (118) 91 Room Air 01/24/17 08:00 Room Air 01/24/17 07:29 37.5 68 20 160/85 (110) 93 Room Air 01/24/17 07:04 74 16 94 Room Air 01/24/17 04:00 Room Air 01/24/17 03:46 36.7 62 16 151/90 (110) 92 Room Air 01/24/17 03:33 65 16 93 Room Air 01/24/17 01:20 36.5 64 18 157/88 (111) 92 Room Air 01/24/17 01:20 36.5 64 18 157/88 92 Room Air 01/24/17 01:03 61 18 134/82 97 01/23/17 23:14 64 20 140/83 98 Room Air 01/23/17 22:44 63 22 01/23/17 21:23 Room Air 01/23/17 21:14 62 18 93 Room Air Last 24 Hours Test 01/23/17 21:20 01/23/17 22:42 01/23/17 23:44 01/24/17 05:23 White Blood Count 11.44 K/uL 10.69 K/uL Red Blood Count 4.63 M/uL 4.28 M/uL Hemoglobin 13.9 g/dL 12.6 g/dL Hematocrit 41.7 % 39.0 % Mean Corpuscular Volume 90.1 fL 91.1 fL Mean Corpuscular Hemoglobin 30.0 pg 29.4 pg Mean Corpuscular Hemoglobin Concent 33.3 g/dl 32.3 g/dl RDW Standard Deviation 46.2 fL 47.3 fL RDW Coefficient of Variation 14.0 % 14.2 % Platelet Count 325 K/uL 298 K/uL Mean Platelet Volume 11.0 fL 11.1 fL Prothrombin Time 10.5 SECONDS Prothromb Time International Ratio 1.0 Activated Partial Thromboplast Time 25.4 SECONDS Partial Thromboplastin Ratio 1.0 Sodium Level 139 mmol/L 140 mmol/L Potassium Level 3.7 mmol/L 3.8 mmol/L Chloride Level 102 mmol/L 105 mmol/L Carbon Dioxide Level 28 mmol/L 30 mmol/L Anion Gap 9.0 mmol/L 5.0 mmol/L Blood Urea Nitrogen 26 mg/dl 25 mg/dl Creatinine 1.30 mg/dl 1.20 mg/dl Est Creatinine Clear Calc Drug Dose 48.8 ml/min 53.1 ml/min Estimated GFR () 55.4 61.0 Estimated GFR (Non- 47.8 52.7 BUN/Creatinine Ratio 19.6 21.0 Random Glucose 153 mg/dl 133 mg/dl Calcium Level 8.3 mg/dl 7.9 mg/dl Total Bilirubin 0.2 mg/dl Aspartate Amino Transf (AST/SGOT) 16 U/L Alanine Aminotransferase (ALT/SGPT) 23 U/L Alkaline Phosphatase 108 U/L Total Protein 5.4 gm/dl Albumin 1.9 gm/dl Globulin 3.5 gm/dl Albumin/Globulin Ratio 0.5 Urine Color YELLOW YELLOW Urine Appearance SL CLOUDY CLOUDY Urine pH 7.0 6.5 Urine Specific [place] 1.020 1.025 Urine Protein 3+ 4+ Urine Glucose (UA) 1+ 2+ Urine Ketones NEG NEG Urine Occult Blood 2+ 2+ Urine Nitrite NEG NEG Urine Bilirubin NEG NEG Urine Urobilinogen NEG NEG Urine Leukocyte Esterase TRACE NEG Urine WBC (Auto) >30 /hpf Urine RBC (Auto) >30 /hpf Urine Hyaline Casts (Auto) 10-30 /lpf Urine Epithelial Cells (Auto) >30 /lpf Urine Bacteria (Auto) NEG Phosphorus Level 3.4 mg/dl Magnesium Level 2.1 mg/dl Test 01/24/17 06:53 01/24/17 11:35 01/24/17 16:21 01/24/17 20:14 Bedside Glucose 124 mg/dl 189 mg/dl 244 mg/dl 247 mg/dl Current Inpatient Medications Medications (Trade) Dose Ordered Sig/Corie Route Start Time Stop Time Status Last Admin Dose Admin Heparin Sodium (Porcine) (Heparin Sq 5000 Unit/0.5ml) 5,000 unit Q8 SQ 01/24/17 06:00 02/23/17 05:59 01/24/17 14:27 5,000 UNIT Potassium Chloride/Sodium Chloride 1,000 ml @ 75 mls/hr [id number] IV 01/24/17 01:30 02/23/17 01:29 01/24/17 14:21 75 MLS/HR Ondansetron HCl (Zofran Inj) 4 mg Q6H PRN IV 01/24/17 00:45 02/23/17 00:44 Acetaminophen (Tylenol Tab) 1,000 mg Q8 PRN PO 01/24/17 01:00 02/23/17 00:59 Aspirin (Ecotrin Tab) 81 mg DAILY PO 01/24/17 09:00 02/23/17 08:59 01/24/17 09:13 81 MG Atorvastatin Calcium (Lipitor Tab) 40 mg DAILY PO 01/24/17 09:00 02/23/17 08:59 01/24/17 09:13 40 MG Docusate Sodium (coLACE CAP) 100 mg BID PO 01/24/17 09:00 02/23/17 08:59 Famotidine (Pepcid Tab) 20 mg Q12 PO 01/24/17 09:00 02/23/17 08:59 01/24/17 09:12 20 MG Glimepiride (Amaryl Tab) 2 mg QAM PO 01/24/17 09:00 02/23/17 08:59 01/24/17 09:12 2 MG Albuterol/ Ipratropium (Duoneb) 3 ml Q4R INH 01/24/17 04:00 02/23/17 03:59 01/24/17 19:17 3 ML Levothyroxine Sodium (Synthroid Tab) 200 mcg DAILYBB PO 01/24/17 06:00 02/23/17 06:59 01/24/17 06:12 200 MCG Lisinopril (Zestril Tab) 60 mg DAILY PO 01/24/17 09:00 02/23/17 08:59 01/24/17 09:13 60 MG Metoprolol Succinate (Toprol Xl Tab) 75 mg Q12 PO 01/24/17 09:00 02/23/17 08:59 01/24/17 09:13 75 MG Oxycodone HCl (Roxicodone Immediate Rel Tab) 5 mg Q4 PRN PO 01/24/17 01:00 02/07/17 00:59 Senna/Docusate Sodium (Senokot S Tab) 1 tab HS PO 01/24/17 21:00 02/23/17 20:59 Miscellaneous Information (Order Awaiting Action) 1 ea QS N/A 01/24/17 08:00 02/23/17 07:59 Methylprednisolone Sodium Succinate 20 mg/Syringe 0.32 ml @ 1.5 mls/min TID IV 01/24/17 09:00 02/23/17 08:59 01/24/17 14:21 1.5 MLS/MIN Levofloxacin 500 mg/Prmx 100 ml @ 100 mls/hr Q24H IV 01/25/17 01:00 01/30/17 01:59 Miscellaneous (Iv Fluids Completed) 1 ea PRN PRN N/A 01/24/17 01:45 01/24/18 01:44 Insulin Aspart (novoLOG ASPART) SLIDING SCALE G... ACHS SC 01/24/17 21:00 02/23/17 20:59 01/24/17 18:07 4 UNITS Glucose (Glucose 40% Gel) 15-30 GRAMS 15 GRAMS... UD PRN PO 01/24/17 17:00 02/23/17 16:59 Glucose (Glucose Chew Tab) 4-8 Tablets 4 Tabl... UD PRN PO 01/24/17 17:00 02/23/17 16:59 Dextrose (Dextrose 50% 50ML Syringe) 25-50ML OF 50% DW IV FOR... UD PRN IV 01/24/17 17:00 02/23/17 16:59 Glucagon (Glucagon Inj) 1 mg UD PRN SQ 01/24/17 17:00 02/23/17 16:59 Miscellaneous Information (Pharmacist Discharge Med Rec Consult) 1 ea UD PRN N/A 01/24/17 20:45 02/23/17 20:44 Impression see above. If able will compare [facility] MRI with [facility] MRI SILKE Londono MD
[2017-01-24] MEDS: CLOPIDOGREL BISULFATE 75 MG TAB PO SCH (22:26)
[2017-01-25] VITALS (13 sets, daily range): BP systolic 146–199; BP diastolic 80–102; PULSE 71–93; TEMP 36.5–37.1; O2SAT 92–96
[2017-01-25] MEDS: LEVOFLOXACIN / D5W 500 MG in PREMIXED IN D5W 100 ML IV SCH (01:05)
[2017-01-25] MEDS: ALBUT/IPRATROP 3MG/0.5MG NEB 3 ML VIAL INH SCH ×6 (03:02→23:33)
[2017-01-25] MEDS: NSS + 20MEQ KCL 1000ML 1,000 ML IV SCH ×2 (06:13→17:35)
[2017-01-25] MEDS: LEVOTHYROXINE 100 MCG TAB PO SCH (06:14)
[2017-01-25] MEDS: HEPARIN SOD 5000 UNIT/0.5 ML CARP SQ SCH ×3 (06:18→21:25)
[2017-01-25] MEDS: FAMOTIDINE 20 MG TAB PO SCH ×2 (07:32→21:25)
[2017-01-25] MEDS: METOPROLOL SUCC 25MG EXT REL TAB PO SCH ×2 (07:33→21:26)
[2017-01-25] MEDS: CLOPIDOGREL BISULFATE 75 MG TAB PO SCH (07:33)
[2017-01-25] MEDS: ASPIRIN 81 MG ECTAB PO SCH (07:33)
[2017-01-25] MEDS: DOCUSATE SODIUM 100 MG CAP PO SCH ×2 (07:34→21:25)
[2017-01-25] MEDS: LISINOPRIL 20 MG TAB PO SCH (07:34)
[2017-01-25] MEDS: ATORVASTATIN 20 MG TAB PO SCH (07:34)
[2017-01-25] MEDS: GLIMEPIRIDE 2 MG TAB PO SCH (07:34)
[2017-01-25] MEDS: INSULIN ASPART 100 UNITS/ML 3 ML PEN SC SCH ×4 (07:45→21:24)
[2017-01-25] MEDS: METHYLPREDNISOLONE IV 20 MG in SYRINGE 0 ML IV SCH ×3 (07:48→21:25)
[2017-01-25 08:15] LABS: CHOLESTEROL/HDL RATIO 3.5
[2017-01-25 08:16] LABS: ESTIMATED AVERAGE GLUCOSE 186 mg/dl; HA1C FLAG Normal (Normal)
--- NOTE | 2017-01-25 11:49 | NEWBORN PROGRESS NOTE ---
DATE: 01/25/2017 DATE: 01/25/2017 REASON FOR CONSULTATION: Dizziness. HISTORY OF PRESENT ILLNESS: I am seeing Mrs. Hernadez in followup. She had a history of unwitnessed fall with multiple fractures. She was [facility] to [facility]. I have reviewed her images. She has bilateral lenticulostriate infarcts noted on MRI of 01/16/2017. While at [facility], she had an episode of confusion and possibly aphasia. Her MRI yesterday shows infarcts in the right bilateral posterior limb of the internal capsule. We were able to get the images pushed into our system and I have reviewed them with Dr. Meza. The infarct in the posterior limb of the right internal capsule may be artifactual, but there does appear to be a new infarct in the left internal capsule that is new and not seen on prior imaging. MRA of the neck showed some attenuation in the distal right vert but no significant stenosis or dissection and the MRA of the [place] of [place] was fairly unremarkable. An echo has been ordered but not yet completed. I have added Plavix to aspirin. The patient has not had any recurrent clinical events. PHYSICAL EXAMINATION: GENERAL: She is awake and alert. There is normal speech and language. Her affect is appropriate. VITAL SIGNS: 37, 96, 18, 160/80, 94%. There is no field cut, aphasia. There is a mild flattening of the left nasal labial fold as noted yesterday. Upper extremity strength and lower extremity strength is symmetric. IMPRESSION: Lacunar infarction, new compared to imaging at [facility] at the very least in the left posterior limb of the internal capsule PLAN: This is in a small vessel distribution. The patient has significant small vessel chronic disease radiographically. Plan to add Plavix, continue aspirin, modify risk factors, good control of diabetes, lipids with a goal LDL of 70 or below, it is currently 98 and gradual reduction in blood pressure to normotension. Although this is radiographically small vessel I would still recommend a Zio net as an outpatient to complete a stroke workup. From a neurologic perspective, once the echo is performed I think she can return to rehab. There are some other issues medically that may keep her here at the hospital. The patient will need to see us in followup post discharge. The presence of these radiographic infarcts does raise the question as to whether the patient fell due to ischemia resulting in her fractures. Will follow with you. TANIA
--- NOTE | 2017-01-25 19:05 | Progress Note ---
Medicine Progress Note Date & Time of Visit: Jan 25, 2017 at 11:25 . Subjective Feels better today. Speech improved. No headaches, visual changes, focal weakness. No chest pain, palpitations. No cough or shortness of breath. No nausea, vomiting, diarrhea. . Objective Last 8 Hrs Date Time Temp Pulse Resp B/P (MAP) Pulse Ox O2 Delivery O2 Flow Rate FiO2 01/25/17 16:00 Room Air 01/25/17 15:22 72 16 93 Room Air 01/25/17 15:04 36.6 74 18 199/97 (131) 94 Room Air 01/25/17 12:00 94 Room Air 01/25/17 11:22 78 16 95 Room Air 01/25/17 11:06 36.7 77 18 187/102 (130) 96 Room Air 190/99 (129) Physical Exam: General- no distress Neck- wearing cervical collar Lungs- clear Heart- RRR Abdomen- soft, nontender Extremities- no pretibial edema or calf tenderness Neuro- alert, oriented; PERRL, EOMI; speech hesitant, but no overt dysarthria or aphasia; no facial palsy; tongue midline; motor strength upper and lower extremities 5/5; no difficulty with finger to nose bilaterally . Laboratory Results: Last 24 Hours Test 01/24/17 20:14 01/25/17 06:11 01/25/17 06:22 01/25/17 11:28 Bedside Glucose 247 mg/dl 173 mg/dl 199 mg/dl Estimated Average Glucose 186 mg/dl Hemoglobin A1c 8.1 % Triglycerides Level 147 mg/dl Cholesterol Level 177 mg/dl HDL Cholesterol 50 mg/dl LDL Cholesterol, Calculated 98 mg/dl VLDL Cholesterol, Calculated 29 mg/dl Cholesterol/HDL Ratio 3.5 Test 01/25/17 15:58 Bedside Glucose 237 mg/dl Assessment & Plan STROKE Episode of decreased responsiveness and difficulty speaking at [facility]. CT negative. MRI demonstrated small lacunar infarction in the left posterior limb of the internal capsule. Seen in consultation by Neurology. MRA cervical vessels did not show any significant stenosis. 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 Echo report pending. Outpatient cardiac event monitor recommended. Clopidogrel added to aspirin therapy. LDL-C 98. Continue atorvastatin. PT, OT, [employer] evaluations requested. RECENT CERVICAL SPINE INJURY Continue cervical collar. HYPERTENSION Continue lisinopril. Permissive hypertension in setting of acute ischemic stroke. COPD Respiratory status stable. DM TYPE 2 Fasting blood sugar 173. Continue glimepiride + insulin coverage as necessary. HYPOTHYROIDISM Continue levothyroxine. DYSLIPIDEMIA Continue atorvastatin. VTE PROPHYLAXIS SQ heparin. Ambulate. DISPOSITION To be determined. Probable return [facility] for additional rehab. . Current Inpatient Medications: Current Inpatient Medications Medications (Trade) Dose Ordered Sig/Corie Route Start Time Stop Time Status Last Admin Dose Admin Heparin Sodium (Porcine) (Heparin Sq 5000 Unit/0.5ml) 5,000 unit Q8 SQ 01/24/17 06:00 02/23/17 05:59 01/25/17 13:30 5,000 UNIT Potassium Chloride/Sodium Chloride 1,000 ml @ 75 mls/hr [id number] IV 01/24/17 01:30 02/23/17 01:29 01/25/17 17:35 75 MLS/HR Ondansetron HCl (Zofran Inj) 4 mg Q6H PRN IV 01/24/17 00:45 02/23/17 00:44 Acetaminophen (Tylenol Tab) 1,000 mg Q8 PRN PO 01/24/17 01:00 02/23/17 00:59 Aspirin (Ecotrin Tab) 81 mg DAILY PO 01/24/17 09:00 02/23/17 08:59 01/25/17 07:33 81 MG Atorvastatin Calcium (Lipitor Tab) 40 mg DAILY PO 01/24/17 09:00 02/23/17 08:59 01/25/17 07:34 40 MG Docusate Sodium (coLACE CAP) 100 mg BID PO 01/24/17 09:00 02/23/17 08:59 01/25/17 07:34 100 MG Famotidine (Pepcid Tab) 20 mg Q12 PO 01/24/17 09:00 02/23/17 08:59 01/25/17 07:32 20 MG Glimepiride (Amaryl Tab) 2 mg QAM PO 01/24/17 09:00 02/23/17 08:59 01/25/17 07:34 2 MG Albuterol/ Ipratropium (Duoneb) 3 ml Q4R INH 01/24/17 04:00 02/23/17 03:59 01/25/17 15:22 3 ML Levothyroxine Sodium (Synthroid Tab) 200 mcg DAILYBB PO 01/24/17 06:00 02/23/17 06:59 01/25/17 06:14 200 MCG Lisinopril (Zestril Tab) 60 mg DAILY PO 01/24/17 09:00 02/23/17 08:59 01/25/17 07:34 60 MG Metoprolol Succinate (Toprol Xl Tab) 75 mg Q12 PO 01/24/17 09:00 02/23/17 08:59 01/25/17 07:33 75 MG Oxycodone HCl (Roxicodone Immediate Rel Tab) 5 mg Q4 PRN PO 01/24/17 01:00 02/07/17 00:59 Senna/Docusate Sodium (Senokot S Tab) 1 tab HS PO 01/24/17 21:00 02/23/17 20:59 Miscellaneous Information (Order Awaiting Action) 1 ea QS N/A 01/24/17 08:00 02/23/17 07:59 Methylprednisolone Sodium Succinate 20 mg/Syringe 0.32 ml @ 1.5 mls/min TID IV 01/24/17 09:00 02/23/17 08:59 01/25/17 13:28 1.5 MLS/MIN Levofloxacin 500 mg/Prmx 100 ml @ 100 mls/hr Q24H IV 01/25/17 01:00 01/30/17 01:59 01/25/17 01:05 100 MLS/HR Miscellaneous (Iv Fluids Completed) 1 ea PRN PRN N/A 01/24/17 01:45 01/24/18 01:44 Insulin Aspart (novoLOG ASPART) SLIDING SCALE G... ACHS SC 01/24/17 21:00 02/23/17 20:59 01/25/17 17:34 4 UNITS Glucose (Glucose 40% Gel) 15-30 GRAMS 15 GRAMS... UD PRN PO 01/24/17 17:00 02/23/17 16:59 Glucose (Glucose Chew Tab) 4-8 Tablets 4 Tabl... UD PRN PO 01/24/17 17:00 02/23/17 16:59 Dextrose (Dextrose 50% 50ML Syringe) 25-50ML OF 50% DW IV FOR... UD PRN IV 01/24/17 17:00 02/23/17 16:59 Glucagon (Glucagon Inj) 1 mg UD PRN SQ 01/24/17 17:00 02/23/17 16:59 Miscellaneous Information (Pharmacist Discharge Med Rec Consult) 1 ea UD PRN N/A 01/24/17 20:45 02/23/17 20:44 Clopidogrel Bisulfate (plAVix TAB) 75 mg QAM PO 01/24/17 22:00 02/23/17 21:59 01/25/17 07:33 75 MG
--- NOTE | 2017-01-25 19:06 | ECHOCARDIOGRAM REPORT ---
*NOTICE TO RECEIVING CONSTITUTION PARTY AGENCY This information is strictly Confidential and protected under [place] law. [place] law prohibits you from making any further disclosure of this information unless further disclosure is expressly permitted by the written consent of the person to whom it pertains or is authorized by law. A general authorization for the release of medical or other information is not sufficient for this purpose. Hospital accepts no responsibility if the information is made available to any other person, INCLUDING THE PATIENT. Interpretation Summary * Name: KENYA CARMONA Study Date: 01/25/2017 10:51 AM BP: 146/80 mmHg * Patient Location: .2T\S\S229\S\1 HR: 63 * : 1965 (M/d/yyyy) Gender: Female Height: 60 in * Age: 51 yrs Ethnicity: CA Weight: 172 lb * Ordering Physician: Shiv Pinedo * Referring Physician: Self, Referred * Performed By: Anabell Harris RCS * * Reason For Study: Cerebral Ischemia/ Embolus * BSA: 1.8 m2 * The study was technically adequate. * -- Conclusions -- * No regional wall motion abnormalities noted. * The LV Ejection Fraction = 55-60%. * There is no LV mural thrombus. * Grade I diastolic dysfunction, (abnormal relaxation pattern). * There is no significant valvular heart disease. * The interatrial septum is intact with no evidence for an atrial septal defect as evaluated with a high quality agitated saline contrast injection. Procedure Details * A saline contrast injection was performed to assess for cardiac shunting. * The injection was performed through an intravenous line in the right arm. * A total of 18 cc of agitated saline was given. * A complete two-dimensional transthoracic echocardiogram was performed (2D, M-mode, Doppler and color flow Doppler). Left Ventricle * The left ventricle is normal in size. * There is normal left ventricular wall thickness. * Left ventricular systolic function is normal. * Ejection Fraction = 55-60%. * The left ventricular wall motion is normal. * No regional wall motion abnormalities noted. Right Ventricle * The right ventricle is normal size. * The right ventricular systolic function is normal as assessed by tricuspid annular plane systolic excursion (TAPSE) (normal >1.5 cm). Atria * The left atrial size is normal. * Right atrial size is normal. * The interatrial septum is intact with no evidence for an atrial septal defect. Mitral Valve * The mitral valve is normal. * There is no mitral valve stenosis. * Significant mitral regurgitation is absent. Tricuspid Valve * The tricuspid valve is normal. * There is no tricuspid stenosis. * Significant tricuspid regurgitation is absent. Aortic Valve * The aortic valve is trileaflet. * Aortic stenosis is absent. * There is no significant aortic regurgitation. Pulmonic Valve * The pulmonary valve is not well seen, but the Doppler examination is normal without significant regurgitation or stenosis. Great Vessels * The aortic root and proximal ascending aorta are normal sized. Pericardium/Pleural * There is no pericardial effusion. Great Vessels * Normal inferior vena cava diameter and respiratory variation suggests normal central venous pressure. Left Ventricular Diastolic Function * Grade I diastolic dysfunction, (abnormal relaxation pattern). MMode 2D Measurements and Calculations IVSd 1.0 cm LVIDd 5.3 cm LVIDs 3.2 cm LVPWd 1.1 cm IVS/LVPW 0.94 FS 39.0 % EDV(Teich) 132.6 ml ESV(Teich) 41.2 ml EF(Teich) 68.9 % EDV(cubed) 144.9 ml ESV(cubed) 33.0 ml EF(cubed) 77.2 % LV mass(C)d 214.0 grams LV mass(C)dI 122.2 grams/m\S\2 SV(Teich) 91.4 ml SI(Teich) 52.2 ml/m\S\2 SV(cubed) 112.0 ml SI(cubed) 63.9 ml/m\S\2 Ao root diam 2.8 cm Ao root area 6.3 cm\S\2 LVOT diam 2.0 cm LVOT area 3.0 cm\S\2 LVAd ap4 40.0 cm\S\2 LVLd ap4 9.3 cm EDV(MOD-sp4) 145.5 ml EDV(sp4-el) 146.9 ml LVAs ap4 22.7 cm\S\2 LVLs ap4 7.2 cm ESV(MOD-sp4) 61.2 ml ESV(sp4-el) 60.9 ml EF(MOD-sp4) 57.9 % EF(sp4-el) 58.5 % LVAd ap2 27.5 cm\S\2 LVLd ap2 7.8 cm EDV(MOD-sp2) 82.8 ml EDV(sp2-el) 83.0 ml LVAs ap2 17.7 cm\S\2 LVLs ap2 7.1 cm ESV(MOD-sp2) 40.4 ml ESV(sp2-el) 37.6 ml EF(MOD-sp2) 51.2 % EF(sp2-el) 54.7 % LVLd %diff -19.52 % EDV(MOD-bp) 119.0 ml LVLs %diff -1.39 % ESV(MOD-bp) 49.8 ml EF(MOD-bp) 58.1 % SV(MOD-sp4) 84.3 ml SI(MOD-sp4) 48.1 ml/m\S\2 SV(MOD-sp2) 42.4 ml SI(MOD-sp2) 24.2 ml/m\S\2 SV(MOD-bp) 69.2 ml SI(MOD-bp) 39.5 ml/m\S\2 SV(sp4-el) 85.9 ml SI(sp4-el) 49.1 ml/m\S\2 SV(sp2-el) 45.4 ml SI(sp2-el) 26.0 ml/m\S\2 Doppler Measurements and Calculations MV E max adali 104.8 cm/sec MV A max adali 108.2 cm/sec MV E/A 0.97 MV dec time 0.11 sec Ao V2 max 141.2 cm/sec Ao max PG 8.0 mmHg Ao max PG (full) 5.3 mmHg KAYLEY(V,A) 1.8 cm\S\2 KAYLEY(V,D) 1.8 cm\S\2 LV V1 max PG 2.7 mmHg LV V1 max 81.5 cm/sec
[2017-01-25] MEDS: DOCUSATE SODIUM/SENNA 50/8.6MG TAB PO SCH (21:25)
[2017-01-26] VITALS (8 sets, daily range): BP systolic 179–206; BP diastolic 78–111; PULSE 64–76; TEMP 36.4–36.8; O2SAT 92–97
[2017-01-26] MEDS: LEVOFLOXACIN / D5W 500 MG in PREMIXED IN D5W 100 ML IV SCH (00:40)
[2017-01-26] MEDS: CLONIDINE HCL 0.1 MG TAB PO PRN ×3 (00:40→15:42)
[2017-01-26] MEDS: ALBUT/IPRATROP 3MG/0.5MG NEB 3 ML VIAL INH SCH ×4 (03:33→19:12)
[2017-01-26] MEDS: HEPARIN SOD 5000 UNIT/0.5 ML CARP SQ SCH ×3 (05:53→20:59)
[2017-01-26] MEDS: LEVOTHYROXINE 100 MCG TAB PO SCH (06:03)
[2017-01-26 06:59] LABS: CALCIUM 8.2 mg/dl (8.5-10.1); CREATININE 1.4 mg/dl (0.60-1.20); POTASSIUM 4.4 mmol/L (3.5-5.1)
[2017-01-26] MEDS: NSS + 20MEQ KCL 1000ML 1,000 ML IV SCH (07:55)
[2017-01-26] MEDS: INSULIN ASPART 100 UNITS/ML 3 ML PEN SC SCH ×4 (08:00→20:59)
[2017-01-26] MEDS: DOCUSATE SODIUM 100 MG CAP PO SCH ×2 (08:25→20:56)
[2017-01-26] MEDS: METHYLPREDNISOLONE IV 20 MG in SYRINGE 0 ML IV SCH ×2 (08:25→14:37)
[2017-01-26] MEDS: GLIMEPIRIDE 2 MG TAB PO SCH (08:25)
[2017-01-26] MEDS: ATORVASTATIN 20 MG TAB PO SCH (08:27)
[2017-01-26] MEDS: CLOPIDOGREL BISULFATE 75 MG TAB PO SCH (08:27)
[2017-01-26] MEDS: ASPIRIN 81 MG ECTAB PO SCH (08:27)
[2017-01-26] MEDS: FAMOTIDINE 20 MG TAB PO SCH ×2 (08:27→20:56)
[2017-01-26] MEDS: LISINOPRIL 20 MG TAB PO SCH (08:28)
[2017-01-26] MEDS: METOPROLOL SUCC 25MG EXT REL TAB PO SCH ×2 (08:28→20:56)
--- NOTE | 2017-01-26 13:54 | PROGRESS NOTE ---
DATE: 01/26/2017 SUBJECTIVE: Mrs. Hernadez is seen in followup of radiographic lacunar infarction with an episode of dysphagia at [facility]. MRI showing a new infarction in the left internal capsule. Aspirin and Plavix was added. She has not had any recurrent events. There is no high grade stenosis of the carotids. Her echocardiography showed no atrial septal defect, no mural thrombus, left atrial size is normal, great vessels are normal size. OBJECTIVE: VITAL SIGNS: 36.4, 68, 18, 195/100, 92%. GENERAL: The patient is awake and alert. Normal speech and language. Affect is appropriate. No aphasia is noted. There is some mild flattening of the left nasolabial fold. No asymmetric weakness. IMPRESSION: Bilateral lacunar infarction. Continue risk factor modification, antiplatelet therapy with aspirin and Plavix. Smoking cessation is advised, gradual reduction in blood pressure recommended. Goal LDL of 70. The patient should see me in followup post discharge. TANIA
--- NOTE | 2017-01-26 20:27 | Progress Note ---
Medicine Progress Note Date & Time of Visit: Jan 26, 2017 at 18:10 . Subjective No headache. No new neuro symptoms. No chest pain. No cough or SOB. No nausea, vomiting, diarrhea. . Objective Last 8 Hrs Date Time Temp Pulse Resp B/P (MAP) Pulse Ox O2 Delivery O2 Flow Rate FiO2 01/26/17 20:00 Room Air 01/26/17 19:26 36.8 66 20 185/93 (123) 92 Room Air 01/26/17 19:14 64 16 97 Room Air 01/26/17 15:46 Room Air 01/26/17 15:32 36.4 65 21 206/98 (134) 94 Room Air Physical Exam: General- no distress Neck- wearing cervical collar Lungs- clear Heart- RRR Abdomen- soft, nontender Extremities- no pretibial edema or calf tenderness Neuro- alert, oriented; PERRL, EOMI; dysarthria improved; no facial palsy; tongue midline . Laboratory Results: Last 24 Hours Test 01/25/17 20:38 01/26/17 06:06 01/26/17 06:40 01/26/17 11:04 Bedside Glucose 276 mg/dl 201 mg/dl 235 mg/dl Sodium Level 136 mmol/L Potassium Level 4.4 mmol/L Chloride Level 104 mmol/L Carbon Dioxide Level 27 mmol/L Anion Gap 5.0 mmol/L Blood Urea Nitrogen 31 mg/dl Creatinine 1.40 mg/dl Est Creatinine Clear Calc Drug Dose 46.6 ml/min Estimated GFR () 50.6 Estimated GFR (Non- 43.7 BUN/Creatinine Ratio 22.0 Random Glucose 244 mg/dl Calcium Level 8.2 mg/dl Test 01/26/17 16:07 01/26/17 20:11 Bedside Glucose 278 mg/dl 346 mg/dl Assessment & Plan STROKE Episode of decreased responsiveness and difficulty speaking at [facility]. CT negative. MRI demonstrated small lacunar infarction in the left posterior limb of the internal capsule. Seen in consultation by Neurology. MRA cervical vessels did not show any significant stenosis. 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 Echo did not show any mural thrombi. Outpatient cardiac event monitor recommended. Clopidogrel added to aspirin therapy. LDL-C 98. Continue atorvastatin. 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 RECENT CERVICAL SPINE INJURY Continue cervical collar. HYPERTENSION Continue lisinopril. Permissive hypertension in setting of acute ischemic stroke. COPD EXACERBATION Cough and wheezing at time of admission. NO infiltrates on chest x-ray. Treated with levofloxacin and steroids. Respiratory status improved. Stop steroids. Transition to oral levofloxacin. DM TYPE 2 Not well-controlled. Hgb A1C 8.1. Fasting blood sugar 201. Discontinue steroids. Continue glimepiride + insulin coverage as necessary. Patient has had problems paying for diabetes meds. Metformin has been recommended and is available as $4 Rx at [facility]. Will add metformin to regimen after her acute hospital stay. HYPOTHYROIDISM Continue levothyroxine. DYSLIPIDEMIA Continue atorvastatin. VTE PROPHYLAXIS SQ heparin. Ambulate. DISPOSITION Anticipated return [facility] for additional rehab. visiting and given update. . Current Inpatient Medications: Current Inpatient Medications Medications (Trade) Dose Ordered Sig/Corie Route Start Time Stop Time Status Last Admin Dose Admin Heparin Sodium (Porcine) (Heparin Sq 5000 Unit/0.5ml) 5,000 unit Q8 SQ 01/24/17 06:00 02/23/17 05:59 01/26/17 14:38 5,000 UNIT Ondansetron HCl (Zofran Inj) 4 mg Q6H PRN IV 01/24/17 00:45 02/23/17 00:44 Acetaminophen (Tylenol Tab) 1,000 mg Q8 PRN PO 01/24/17 01:00 02/23/17 00:59 Aspirin (Ecotrin Tab) 81 mg DAILY PO 01/24/17 09:00 02/23/17 08:59 01/26/17 08:27 81 MG Atorvastatin Calcium (Lipitor Tab) 40 mg DAILY PO 01/24/17 09:00 02/23/17 08:59 01/26/17 08:27 40 MG Docusate Sodium (coLACE CAP) 100 mg BID PO 01/24/17 09:00 02/23/17 08:59 01/26/17 08:25 100 MG Famotidine (Pepcid Tab) 20 mg Q12 PO 01/24/17 09:00 02/23/17 08:59 01/26/17 08:27 20 MG Glimepiride (Amaryl Tab) 2 mg QAM PO 01/24/17 09:00 02/23/17 08:59 01/26/17 08:25 2 MG Levothyroxine Sodium (Synthroid Tab) 200 mcg DAILYBB PO 01/24/17 06:00 02/23/17 06:59 01/26/17 06:03 200 MCG Lisinopril (Zestril Tab) 60 mg DAILY PO 01/24/17 09:00 02/23/17 08:59 01/26/17 08:28 60 MG Metoprolol Succinate (Toprol Xl Tab) 75 mg Q12 PO 01/24/17 09:00 02/23/17 08:59 01/26/17 08:28 75 MG Oxycodone HCl (Roxicodone Immediate Rel Tab) 5 mg Q4 PRN PO 01/24/17 01:00 02/07/17 00:59 Senna/Docusate Sodium (Senokot S Tab) 1 tab HS PO 01/24/17 21:00 02/23/17 20:59 01/25/17 21:25 1 TAB Miscellaneous Information (Order Awaiting Action) 1 ea QS N/A 01/24/17 08:00 02/23/17 07:59 Levofloxacin 500 mg/Prmx 100 ml @ 100 mls/hr Q24H IV 01/25/17 01:00 01/30/17 01:59 01/26/17 00:40 100 MLS/HR Miscellaneous (Iv Fluids Completed) 1 ea PRN PRN N/A 01/24/17 01:45 01/24/18 01:44 Insulin Aspart (novoLOG ASPART) SLIDING SCALE G... ACHS SC 01/24/17 21:00 02/23/17 20:59 01/26/17 17:09 5 UNITS Glucose (Glucose 40% Gel) 15-30 GRAMS 15 GRAMS... UD PRN PO 01/24/17 17:00 02/23/17 16:59 Glucose (Glucose Chew Tab) 4-8 Tablets 4 Tabl... UD PRN PO 01/24/17 17:00 02/23/17 16:59 Dextrose (Dextrose 50% 50ML Syringe) 25-50ML OF 50% DW IV FOR... UD PRN IV 01/24/17 17:00 02/23/17 16:59 Glucagon (Glucagon Inj) 1 mg UD PRN SQ 01/24/17 17:00 02/23/17 16:59 Miscellaneous Information (Pharmacist Discharge Med Rec Consult) 1 ea UD PRN N/A 01/24/17 20:45 02/23/17 20:44 Clopidogrel Bisulfate (plAVix TAB) 75 mg QAM PO 01/24/17 22:00 02/23/17 21:59 01/26/17 08:27 75 MG Clonidine HCl (Catapres Tab) 0.1 mg Q6H PRN PO 01/26/17 00:30 02/25/17 00:29 01/26/17 15:42 0.1 MG Albuterol/ Ipratropium (Duoneb) 3 ml BIDR INH 01/26/17 20:00 02/25/17 19:59 01/26/17 19:12 3 ML
[2017-01-26] MEDS: DOCUSATE SODIUM/SENNA 50/8.6MG TAB PO SCH (20:57)
[2017-01-27] VITALS (8 sets, daily range): BP systolic 143–195; BP diastolic 80–102; PULSE 62–78; TEMP 36.5–36.8; O2SAT 94–96; Ht 154.9 cm; Wt 81.9 kg
[2017-01-27] MEDS: HEPARIN SOD 5000 UNIT/0.5 ML CARP SQ SCH ×3 (05:52→21:14)
[2017-01-27] MEDS: LEVOTHYROXINE 100 MCG TAB PO SCH (05:58)
[2017-01-27 06:35] LABS: BUN/CREATININE RATIO 21.5 (10-20); CREATININE 1.6 mg/dl (0.60-1.20); POTASSIUM 4.4 mmol/L (3.5-5.1)
[2017-01-27 06:45] LABS: THYROID STIMULATING HORMONE 2.69 uIu/ml (0.300-4.500)
[2017-01-27] MEDS: ALBUT/IPRATROP 3MG/0.5MG NEB 3 ML VIAL INH SCH ×2 (06:58→18:57)
--- NOTE | 2017-01-27 08:04 | NEUROLOGY CONSULTATION ---
DATE OF CONSULTATION: 01/24/2017 REASON FOR CONSULTATION: Possible aphasia. HISTORY OF PRESENT ILLNESS: Deborah is a 51-year-old right-handed female with a history of type 2 diabetes with retinopathy and COPD. She has a recent history of a nondisplaced fracture of the cervical vertebrae, multiple rib fractures and a fibular fracture following a fall that happened on 01/13/2017. The patient does not recall the fall and first recalls waking up at [facility]. She indicates that her family felt she was somewhat confused prior to her recollection of being awake. She indicates at [facility] that there may have been evidence of 2 small strokes, 1 on each side of the brain. I cannot access the [facility] record at present to confirm or refute that. On that background, yesterday while at [facility], she was noted to have some slurring of speech with acute confusion. The patient indicates that she has had some difficulty finding the right words since yesterday, the day of admission. The ER records indicate that the family was concerned that she is having slurred speech more than usual and confusion. The patient indicates that she has no prior history of transient ischemic attacks or stroke and this has not been accompanied by headache, change in vision, numbness, slurred speech, facial droop, unilateral weakness or numbness. She has had multiple rib fractures and on admission to the hospital was found to have a pneumonic process as well. A CT of the head, noncontrast, appears unremarkable. EKG, sinus rhythm, rate of 62. Chest x-ray is said to be negative. The reading ER physicians felt the chest x-ray was concerning for right upper lobe infiltrate. Her labs were notable for white count of 11.4, H&H and platelet count normal. PT 10.5, PTT 25.4. Her chemistry profile on admission, sodium 139, potassium 3.9, BUN and creatinine 26/1.3. Her blood sugar on admission was 153, calcium 8.3. I do not know her vitals nor her blood sugar at the time of the noted difficulty with word finding. Similarly, I do not know if she had received any narcotics at that time. The patient indicates that she was having less pain yesterday and she believes she skipped a dose in narcotics. Urinalysis, slightly cloudy, trace leukocyte esterase, 2+ blood, positive protein and glucose. MEDICATIONS: On admission were Tylenol, aspirin, Lipitor, Colace, Pepcid, Lasix, glimepiride, NovoLog, DuoNeb, Synthroid, lisinopril, Toprol, Roxicodone and fluocinonide. REVIEW OF SYSTEMS: As above. MEDICAL HISTORY: As above. SURGICAL HISTORY: The patient has had laser surgery to the left eye and multiple orthopedic surgeries of the left leg. SOCIAL HISTORY: She is . Smokes cigarettes. Drinks alcohol occasionally. ALLERGIES: ADHESIVES. PHYSICAL EXAMINATION: GENERAL: She is awake, alert and oriented x3. She has some initial trouble generating President Bernadette's name but then is able to do so. There is no right/left confusion and memory is 3/3 at 3 minutes. Naming repetitions and 3-step commands are normal. She is immobilized in a hard cervical collar. I do not appreciate any cranial bruits. VITAL SIGNS: 36.8, 87, 185/93 with standing 167/91. HEART: Regular rate and rhythm. LUNGS: Clear. SPINE: Nontender and atraumatic. ABDOMEN: Soft and nontender. EXTREMITIES: There is mild pretibial edema. NEUROLOGIC: Pupils are equal. I had difficulty visualizing the optic nerves. There is normal motility field. Facial sensation, if anything a marginal flattening of the left nasolabial fold that I do not think is significant. Speech is nondysphasic and tongue is midline. Motor 5/5. No drift. Normal rapid alternating movements. Symmetric reflexes. Downgoing toes. Hcnllz-sl-azbr and [id number] are normal. There is intact light touch and temperature bilaterally. IMPRESSION: This patient has had a nondisplaced cervical fracture and multiple orthopedic traumas. By report, there was some confusion and/or aphasia. It is difficult to know if this was related to sleep deprivation, narcotic pain medications, although one would not expect true aphasia. PLAN: Given the severity of her injuries, recommend MRI brain, MRA head and neck;r/o dissection, new infarct. further evaluation depending on the aforementioned. Continue antiplatelet therapy at present. Consider holding or reducing the dose of narcotics to minimize their contribution. We will follow with you. TANIA
[2017-01-27] MEDS: ATORVASTATIN 40 MG TAB PO SCH (08:06)
[2017-01-27] MEDS: AMLODIPINE BESYLATE 5 MG TAB PO SCH (08:06)
[2017-01-27] MEDS: GLIMEPIRIDE 2 MG TAB PO SCH (08:07)
[2017-01-27] MEDS: ASPIRIN 81 MG ECTAB PO SCH (08:07)
[2017-01-27] MEDS: CLOPIDOGREL BISULFATE 75 MG TAB PO SCH (08:07)
[2017-01-27] MEDS: LISINOPRIL 20 MG TAB PO SCH (08:07)
[2017-01-27] MEDS: FAMOTIDINE 20 MG TAB PO SCH ×2 (08:08→20:04)
[2017-01-27] MEDS: METOPROLOL SUCC 25MG EXT REL TAB PO SCH ×2 (08:08→20:03)
[2017-01-27] MEDS: INSULIN ASPART 100 UNITS/ML 3 ML PEN SC SCH ×4 (08:24→21:13)
[2017-01-27] MEDS: DOCUSATE SODIUM 100 MG CAP PO SCH ×2 (08:25→20:00)
[2017-01-27] MEDS: LEVOFLOXACIN 500 MG TAB PO SCH (11:00)
[2017-01-27] MEDS: DOCUSATE SODIUM/SENNA 50/8.6MG TAB PO SCH (20:05)
--- NOTE | 2017-01-27 21:14 | Progress Note ---
Medicine Progress Note Date & Time of Visit: Jan 27, 2017 at 18:00 . Subjective Blood pressures high at times, but improved. No chest pain. No cough or shortness of breath. No nausea or vomiting. No headaches. No new neurologic symptoms. . Objective Last 8 Hrs Date Time Temp Pulse Resp B/P (MAP) Pulse Ox O2 Delivery O2 Flow Rate FiO2 01/27/17 19:30 36.6 66 18 178/99 (125) 95 Room Air 01/27/17 18:57 67 16 94 Room Air 01/27/17 16:00 94 Room Air 01/27/17 15:17 36.5 62 20 158/91 (113) 94 Room Air Physical Exam: General- no distress Neck- wearing cervical collar Lungs- clear Heart- RRR Abdomen- soft, nontender Extremities- no pretibial edema or calf tenderness Neuro- alert, oriented; PERRL, EOMI; no significant dysarthria; no facial palsy ; motor strength upper and lower extremities essentially 5/5 . Laboratory Results: Last 24 Hours Test 01/27/17 05:14 01/27/17 06:42 01/27/17 11:02 01/27/17 16:09 Sodium Level 137 mmol/L Potassium Level 4.4 mmol/L Chloride Level 104 mmol/L Carbon Dioxide Level 28 mmol/L Anion Gap 5.0 mmol/L Blood Urea Nitrogen 34 mg/dl Creatinine 1.60 mg/dl Est Creatinine Clear Calc Drug Dose 40.8 ml/min Estimated GFR () 43.1 Estimated GFR (Non- 37.2 BUN/Creatinine Ratio 21.5 Random Glucose 226 mg/dl Calcium Level 8.0 mg/dl Thyroid Stimulating Hormone (TSH) 2.690 uIu/ml Bedside Glucose 214 mg/dl 158 mg/dl 217 mg/dl Test 01/27/17 20:08 Bedside Glucose 198 mg/dl Assessment & Plan STROKE Episode of decreased responsiveness and difficulty speaking at [facility]. CT negative. MRI demonstrated small lacunar infarction in the left posterior limb of the internal capsule. Seen in consultation by Neurology. MRA cervical vessels did not show any significant stenosis. 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 Echo did not show any mural thrombi. Outpatient cardiac event monitor recommended. Clopidogrel added to aspirin therapy. LDL-C 98. Continue atorvastatin. 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 RECENT CERVICAL SPINE INJURY Continue cervical collar. HYPERTENSION Continue lisinopril. Permissive hypertension in setting of acute ischemic stroke with gradual reduction optimal pressures most appropriate. Continue metoprolol and lisinopril. Amlodipine 2.5 mg daily added to regimen. COPD EXACERBATION Cough and wheezing at time of admission. No infiltrates on chest x-ray. Treated with levofloxacin and steroids. Respiratory status improved. Stopped steroids. Transitioned to oral levofloxacin. DM TYPE 2 Not well-controlled. Hgb A1C 8.1. Fasting blood sugar 214. Discontinue steroids. Continue glimepiride + insulin coverage as necessary. Patient has had problems paying for diabetes meds. Metformin has been recommended and is available as $4 Rx at [facility]. Will add metformin to regimen after her acute hospital stay. HYPOTHYROIDISM Continue levothyroxine. DYSLIPIDEMIA Continue atorvastatin. VTE PROPHYLAXIS SQ heparin. Ambulate. DISPOSITION Anticipated return [facility] for additional rehab. . Current Inpatient Medications: Current Inpatient Medications Medications (Trade) Dose Ordered Sig/Corie Route Start Time Stop Time Status Last Admin Dose Admin Heparin Sodium (Porcine) (Heparin Sq 5000 Unit/0.5ml) 5,000 unit Q8 SQ 01/24/17 06:00 02/23/17 05:59 01/27/17 13:15 5,000 UNIT Ondansetron HCl (Zofran Inj) 4 mg Q6H PRN IV 01/24/17 00:45 02/23/17 00:44 Acetaminophen (Tylenol Tab) 1,000 mg Q8 PRN PO 01/24/17 01:00 02/23/17 00:59 Aspirin (Ecotrin Tab) 81 mg DAILY PO 01/24/17 09:00 02/23/17 08:59 01/27/17 08:07 81 MG Docusate Sodium (coLACE CAP) 100 mg BID PO 01/24/17 09:00 02/23/17 08:59 01/26/17 08:25 100 MG Famotidine (Pepcid Tab) 20 mg Q12 PO 01/24/17 09:00 02/23/17 08:59 01/27/17 20:04 20 MG Glimepiride (Amaryl Tab) 2 mg QAM PO 01/24/17 09:00 02/23/17 08:59 01/27/17 08:07 2 MG Levothyroxine Sodium (Synthroid Tab) 200 mcg DAILYBB PO 01/24/17 06:00 02/23/17 06:59 01/27/17 05:58 200 MCG Lisinopril (Zestril Tab) 60 mg DAILY PO 01/24/17 09:00 02/23/17 08:59 01/27/17 08:07 60 MG Metoprolol Succinate (Toprol Xl Tab) 75 mg Q12 PO 01/24/17 09:00 02/23/17 08:59 01/27/17 20:03 75 MG Oxycodone HCl (Roxicodone Immediate Rel Tab) 5 mg Q4 PRN PO 01/24/17 01:00 02/07/17 00:59 Senna/Docusate Sodium (Senokot S Tab) 1 tab HS PO 01/24/17 21:00 02/23/17 20:59 01/25/17 21:25 1 TAB Miscellaneous Information (Order Awaiting Action) 1 ea QS N/A 01/24/17 08:00 02/23/17 07:59 Miscellaneous (Iv Fluids Completed) 1 ea PRN PRN N/A 01/24/17 01:45 01/24/18 01:44 Insulin Aspart (novoLOG ASPART) SLIDING SCALE G... ACHS SC 01/24/17 21:00 02/23/17 20:59 01/27/17 17:06 4 UNITS Glucose (Glucose 40% Gel) 15-30 GRAMS 15 GRAMS... UD PRN PO 01/24/17 17:00 02/23/17 16:59 Glucose (Glucose Chew Tab) 4-8 Tablets 4 Tabl... UD PRN PO 01/24/17 17:00 02/23/17 16:59 Dextrose (Dextrose 50% 50ML Syringe) 25-50ML OF 50% DW IV FOR... UD PRN IV 01/24/17 17:00 02/23/17 16:59 Glucagon (Glucagon Inj) 1 mg UD PRN SQ 01/24/17 17:00 02/23/17 16:59 Miscellaneous Information (Pharmacist Discharge Med Rec Consult) 1 ea UD PRN N/A 01/24/17 20:45 02/23/17 20:44 Clopidogrel Bisulfate (plAVix TAB) 75 mg QAM PO 01/24/17 22:00 02/23/17 21:59 01/27/17 08:07 75 MG Clonidine HCl (Catapres Tab) 0.1 mg Q6H PRN PO 01/26/17 00:30 02/25/17 00:29 01/26/17 15:42 0.1 MG Albuterol/ Ipratropium (Duoneb) 3 ml BIDR INH 01/26/17 20:00 02/25/17 19:59 01/27/17 18:57 3 ML Levofloxacin (Levaquin Tab) 500 mg DAILY@11 PO 01/27/17 11:00 02/03/17 10:59 01/27/17 11:00 500 MG Atorvastatin Calcium (Lipitor Tab) 80 mg QAM PO 01/27/17 09:00 02/26/17 08:59 01/27/17 08:06 80 MG Amlodipine Besylate (Norvasc Tab) 2.5 mg QAM PO 01/27/17 09:00 02/26/17 08:59 01/27/17 08:06 2.5 MG
[2017-01-28] VITALS (7 sets, daily range): BP systolic 152–190; BP diastolic 79–94; PULSE 57–61; TEMP 36.3–37.1; O2SAT 94–96
[2017-01-28] MEDS: CLONIDINE HCL 0.1 MG TAB PO PRN ×2 (00:51→08:05)
[2017-01-28] MEDS: LEVOTHYROXINE 100 MCG TAB PO SCH (06:21)
[2017-01-28] MEDS: HEPARIN SOD 5000 UNIT/0.5 ML CARP SQ SCH ×2 (06:22→13:09)
[2017-01-28] MEDS: ALBUT/IPRATROP 3MG/0.5MG NEB 3 ML VIAL INH SCH (07:10)
[2017-01-28] MEDS: FAMOTIDINE 20 MG TAB PO SCH (08:04)
[2017-01-28] MEDS: LISINOPRIL 20 MG TAB PO SCH (08:05)
[2017-01-28] MEDS: AMLODIPINE BESYLATE 5 MG TAB PO SCH (08:05)
[2017-01-28] MEDS: GLIMEPIRIDE 2 MG TAB PO SCH (08:05)
[2017-01-28] MEDS: METOPROLOL SUCC 25MG EXT REL TAB PO SCH (08:05)
[2017-01-28] MEDS: DOCUSATE SODIUM 100 MG CAP PO SCH (08:05)
[2017-01-28] MEDS: CLOPIDOGREL BISULFATE 75 MG TAB PO SCH (08:06)
[2017-01-28] MEDS: ATORVASTATIN 40 MG TAB PO SCH (08:06)
[2017-01-28] MEDS: ASPIRIN 81 MG ECTAB PO SCH (08:06)
[2017-01-28] MEDS: LEVOFLOXACIN 500 MG TAB PO SCH (08:08)
[2017-01-28] MEDS: INSULIN ASPART 100 UNITS/ML 3 ML PEN SC SCH ×2 (09:23→13:09)
[2017-01-28] MEDS ORDERED: NVLGIPEN SC ×2 (15:58→16:08)
[2017-01-28] MEDS ORDERED: GLC500 PO (15:58)
[2017-01-28] MEDS ORDERED: PLV75 PO (15:58)
[2017-01-28] MEDS ORDERED: LPT40 PO (15:58)
[2017-01-28] MEDS ORDERED: LVQ500 PO (15:58)
[2017-01-28] MEDS ORDERED: NRV5 PO (15:58)
--- NOTE | 2017-01-28 18:27 | Progress Note ---
Medicine Progress Note Date & Time of Visit: Jan 28, 2017 at 15:30 . Subjective No fever. No chest pain. No cough or SOB. No nausea or vomiting. No headache. No new neuro symptoms. PT and OT recommend ongoing therapies . Objective Last 8 Hrs Date Time Temp Pulse Resp B/P (MAP) Pulse Ox O2 Delivery O2 Flow Rate FiO2 01/28/17 11:50 36.6 58 18 155/89 (111) 94 Room Air 01/28/17 11:00 Room Air 01/28/17 07:31 58 16 94 Room Air Physical Exam: General- lying in bed, no distress Neck- wearing cervical collar Lungs- clear Heart- RRR Abdomen- soft, nontender Extremities- no pretibial edema or calf tenderness Neuro- alert, oriented; PERRL, EOMI; no significant dysarthria; no facial palsy ; motor strength upper and lower extremities essentially 5/5 . Laboratory Results: Last 24 Hours Test 01/27/17 16:09 01/27/17 20:08 01/28/17 07:26 01/28/17 11:30 Bedside Glucose 217 mg/dl 198 mg/dl 166 mg/dl 164 mg/dl Assessment & Plan STROKE Episode of decreased responsiveness and difficulty speaking at [facility]. CT negative. MRI demonstrated small lacunar infarction in the left posterior limb of the internal capsule. Seen in consultation by Neurology. MRA cervical vessels did not show any significant stenosis. 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 Echo did not show any mural thrombi. Outpatient cardiac event monitor recommended. Clopidogrel added to aspirin therapy. LDL-C 98. Atorvastatin dose increased. PT, OT, PURCHASING INTERN evaluations obtained. Return to [facility] for ongoing therapies recommended. RECENT CERVICAL SPINE INJURY Continue cervical collar. HYPERTENSION Continue lisinopril. Permissive hypertension in setting of acute ischemic stroke with gradual reduction optimal pressures most appropriate. Continue metoprolol and lisinopril. Amlodipine 2.5 mg daily added to regimen. COPD EXACERBATION Cough and wheezing at time of admission. No infiltrates on chest x-ray. Treated with levofloxacin and steroids. Respiratory status improved. Stopped steroids. Transitioned to oral levofloxacin. DM TYPE 2 Not well-controlled. Hgb A1C 8.1. Fasting blood sugar 214. Discontinue steroids. Continue glimepiride + insulin coverage as necessary. Patient has had problems paying for diabetes meds. Metformin has been recommended and is available as $4 Rx at [facility]. Will add metformin to regimen after her acute hospital stay. HYPOTHYROIDISM Continue levothyroxine. DYSLIPIDEMIA Continue atorvastatin. VTE PROPHYLAXIS SQ heparin. Ambulate. DISPOSITION Arrangements being made for return to [facility] for additional rehab. Follow-up appointments with Dustin: RADIOLOGY 02/04/2017 10:50 AM TRAUMA CLINIC 02/04/2017 11:20 AM Trauma Clinic [address] General Surgery, [place] [facility] .02/04/2017 12:15 PM Dawit James MD Orthopaedics Spine Surgery, [place] [facility] 02/28/2017 12:30 PM Torie Gutiérrez PA-C NEUROLOGY Dr. Lorenza Constantino . Consultants: Neurology with Dr. Londono . Procedures: CT head MRI brain MRA cervical vessels MRA intracranial vessels carotid duplex echo cardiac monitoring PT OT PURCHASING INTERN . Current Inpatient Medications: Current Inpatient Medications Medications (Trade) Dose Ordered Sig/Corie Route Start Time Stop Time Status Last Admin Dose Admin Heparin Sodium (Porcine) (Heparin Sq 5000 Unit/0.5ml) 5,000 unit Q8 SQ 01/24/17 06:00 02/23/17 05:59 01/28/17 13:09 5,000 UNIT Ondansetron HCl (Zofran Inj) 4 mg Q6H PRN IV 01/24/17 00:45 02/23/17 00:44 Acetaminophen (Tylenol Tab) 1,000 mg Q8 PRN PO 01/24/17 01:00 02/23/17 00:59 Aspirin (Ecotrin Tab) 81 mg DAILY PO 01/24/17 09:00 02/23/17 08:59 01/28/17 08:06 81 MG Docusate Sodium (coLACE CAP) 100 mg BID PO 01/24/17 09:00 02/23/17 08:59 01/28/17 08:05 100 MG Famotidine (Pepcid Tab) 20 mg Q12 PO 01/24/17 09:00 02/23/17 08:59 01/28/17 08:04 20 MG Glimepiride (Amaryl Tab) 2 mg QAM PO 01/24/17 09:00 02/23/17 08:59 01/28/17 08:05 2 MG Levothyroxine Sodium (Synthroid Tab) 200 mcg DAILYBB PO 01/24/17 06:00 02/23/17 06:59 01/28/17 06:21 200 MCG Lisinopril (Zestril Tab) 60 mg DAILY PO 01/24/17 09:00 02/23/17 08:59 01/28/17 08:05 60 MG Metoprolol Succinate (Toprol Xl Tab) 75 mg Q12 PO 01/24/17 09:00 02/23/17 08:59 01/28/17 08:05 75 MG Oxycodone HCl (Roxicodone Immediate Rel Tab) 5 mg Q4 PRN PO 01/24/17 01:00 02/07/17 00:59 Senna/Docusate Sodium (Senokot S Tab) 1 tab HS PO 01/24/17 21:00 02/23/17 20:59 01/25/17 21:25 1 TAB Miscellaneous Information (Order Awaiting Action) 1 ea QS N/A 01/24/17 08:00 02/23/17 07:59 Miscellaneous (Iv Fluids Completed) 1 ea PRN PRN N/A 01/24/17 01:45 01/24/18 01:44 Insulin Aspart (novoLOG ASPART) SLIDING SCALE G... ACHS SC 01/24/17 21:00 02/23/17 20:59 01/28/17 13:09 2 UNITS Glucose (Glucose 40% Gel) 15-30 GRAMS 15 GRAMS... UD PRN PO 01/24/17 17:00 02/23/17 16:59 Glucose (Glucose Chew Tab) 4-8 Tablets 4 Tabl... UD PRN PO 01/24/17 17:00 02/23/17 16:59 Dextrose (Dextrose 50% 50ML Syringe) 25-50ML OF 50% DW IV FOR... UD PRN IV 01/24/17 17:00 02/23/17 16:59 Glucagon (Glucagon Inj) 1 mg UD PRN SQ 01/24/17 17:00 02/23/17 16:59 Miscellaneous Information (Pharmacist Discharge Med Rec Consult) 1 ea UD PRN N/A 01/24/17 20:45 02/23/17 20:44 Clopidogrel Bisulfate (plAVix TAB) 75 mg QAM PO 01/24/17 22:00 02/23/17 21:59 01/28/17 08:06 75 MG Albuterol/ Ipratropium (Duoneb) 3 ml BIDR INH 01/26/17 20:00 02/25/17 19:59 01/28/17 07:10 3 ML Levofloxacin (Levaquin Tab) 500 mg DAILY@11 PO 01/27/17 11:00 02/03/17 10:59 01/28/17 08:08 500 MG Atorvastatin Calcium (Lipitor Tab) 80 mg QAM PO 01/27/17 09:00 02/26/17 08:59 01/28/17 08:06 80 MG Amlodipine Besylate (Norvasc Tab) 2.5 mg QAM PO 01/27/17 09:00 02/26/17 08:59 01/28/17 08:05 2.5 MG Clonidine HCl (Catapres Tab) 0.1 mg Q6H PRN PO 01/28/17 00:30 02/25/17 00:29 01/28/17 08:05 0.1 MG
--- NOTE | 2017-01-28 18:28 | Discharge Summary ---
Discharge Summary Date of Service Jan 28, 2017. Discharge Summary Admission Date: Jan 25, 2017 at 21:06 Discharge Date: Jan 28, 2017 Principal Diagnosis: acute ischemic stroke left internal capsule . Secondary Diagnoses/Problems: Chronic and Resolved Medical Problems: (1) CKD (chronic kidney disease), stage II Status: Chronic (2) Diabetes mellitus type 2, uncontrolled Status: Chronic (3) Dyslipidemia Status: Chronic (4) Essential hypertension Status: Chronic (5) Fracture of first cervical vertebra Status: Chronic (6) GERD (gastroesophageal reflux disease) Status: Chronic (7) Hypothyroidism Status: Chronic . Procedures: CT head MRI brain MRA cervical vessels MRA intracranial vessels echo cardiac monitoring PT OT RIB CLOTH KNITTER Brain MRI WITHOUT CONTRAST FINDINGS: There is a 9 mm focus of restricted diffusion within the posterior limb of the left internal capsule. This is consistent with an acute infarct. There is also a punctate focus of possible restricted diffusion within the posterior limb of the right internal capsule. This may also represent a small acute infarct. There are old lacunar infarcts seen within the right thalamus. The ventricles and sulci are within normal limits. Moderate mucosal thickening and a small fluid level within the sphenoid sinuses. A few partially opacified mastoid air cells. The major vascular flow-voids at the skull base are well-maintained. The midline structures are intact. No mass, hematoma, or midline shift. A few scattered foci of T2 hyperintensity seen within the periventricular white matter. This is nonspecific but favors mild microvascular ischemic change. IMPRESSION: 1. A small acute infarct within the posterior limb of the left internal capsule. There is also suggestion of a punctate acute infarct within the posterior limb of the right internal capsule. 2. Old lacunar infarcts within the right thalamus. 3. Acute on chronic sphenoid sinusitis. Electronically signed by: Jeffrey Meza M.D. 01/24/2017 6:05 PM Dictated Date/Time: 01/24/2017 6:00 PM . Consultations: Neurology with Dr. Londono . Pending Studies/Follow-Up: outpatient cardiac event monitor recommended Medication Reconciliation New Medications: Metformin HCl (Metformin HCl) 500 Mg Tab 500 MG PO BID for 30 Days, TAB New med. Will need Rx at time of discharge from [facility]. Amlodipine Besylate (Amlodipine Besylate) 5 Mg Tab 2.5 MG PO QAM for 30 Days, TAB New med. Will need Rx at time of discharge from [facility]. Atorvastatin (Atorvastatin Calcium) 40 Mg Tab 80 MG PO QAM for 30 Days, TAB New dose. Will need Rx at time of discharge from [facility]. Clopidogrel Bisulfate (Clopidogrel) 75 Mg Tab 75 MG PO QAM for 30 Days, TAB New med. Will need Rx at time of discharge from [facility]. Insulin Aspart (Novolog Flexpen) 100 Units/Ml Inj 0 UNITS SC ACHS for 30 Days Blood sugar goal 100-160. Correction factor = 50 mg / DL / unit Carb Ratio = 1 unit per 30 gms carb Levofloxacin (Levofloxacin) 500 Mg Tab 500 MG PO DAILY for 1 Day, TAB 16 will be last day of therapy. Continued Medications: Acetaminophen (Tylenol) 500 Mg Tab 1000 MG PO Q8 PRN for Pain, TAB Aspirin (Aspirin Ec) 81 Mg Tab 81 MG PO DAILY Docusate Sodium (Docusate Sodium) 100 Mg Cap 100 MG PO BID for 7 Days, #14 CAP Famotidine (Pepcid) 20 Mg Tab 20 MG PO Q12, TAB Fluocinonide (Fluocinonide) 0.05 % Gel 1 DOSE TOP BID Furosemide (Lasix) 40 Mg Tab 40 MG PO QAM, TAB Glimepiride (Glimepiride) 2 Mg Tab 2 MG PO QAM, TAB 3 Refills Ipratropium-Albuterol (Duoneb) 3 Ml Nebu 1 TREATMENT INH BID, INHA Levothyroxine Sodium (Synthroid) 100 Mcg Tab 200 MCG PO QAM Lisinopril (Zestril) 20 Mg Tab 60 MG PO DAILY, TAB Metoprolol Succinate (Toprol Xl) 25 Mg Tabcr 75 MG PO Q12, #30 TAB Oxycodone Ir (Roxicodone Ir) 5 Mg Tab 5 MG PO Q4 PRN for Pain, TAB Sennosides-Docusate Sodium (Docusate Sodium/Senna) 1 Tab Tab 1 TAB PO HS Discontinued Medications: Atorvastatin (Lipitor) 40 Mg Tab 40 MG PO DAILY, TAB Insulin Aspart (Novolog Flexpen) 100 Units/Ml Inj 1 DOSE SQ HS Admission Information HPI (per Admitting provider): She is a 51-year-old female with significant past medical history of type 2 diabetes with retinopathy, moderate COPD with ongoing smoking, recent history of closed nondisplaced fracture of the cervical vertebra and multiple rib fractures and fibular fracture following a fall that happened on 01/13/2017, also hypothyroidism and reflux disease. Apparently was in [facility] following transfer from [place] after the multiple fractures following injury. This afternoon or this evening she was noted to have acute confusion in the [facility] with some slurring of speech without any significant lab abnormality. From that point, she was transferred to [facility] Emergency Room for further evaluation. In the Emergency Room, she was alert, awake, oriented. She did not have any focal neurological deficit. She was generally weak and she was noted to have acute bronchitis/pneumoniae involving the right upper lobe with slight elevation of the white count. From that point, she was started with intravenous antibiotic and she was advised for admission. . Physical Exam (per Admitting): GENERAL: On examination in the Emergency Room, she has a cervical collar-1 and that will be there for 6 weeks in total. She does have some discomfort from that collar, but no other acute symptoms. VITAL SIGNS: Temperature 37.0, pulse 64, blood pressure 140/83, saturation 98% on room air. HEENT: Remarkable for cervical collar. CHEST: Decreased breath sounds with occasional crackles at the bases. HEART: S1, S2 regular. No murmur. ABDOMEN: Soft, benign, nontender, no organomegaly. Bowel sounds present. EXTREMITIES: Trace edema bilaterally. MUSCULOSKELETAL SYSTEM: Did not show any acute arthritis. CENTRAL NERVOUS SYSTEM: She was alert, awake, oriented. She has minimal dysphagia, but does not have any problem with swallowing. She is generally weak but does not have any focal neurological deficit. . Hospital Course STROKE Episode of decreased responsiveness and difficulty speaking at [facility]. CT negative. MRI demonstrated small lacunar infarction in the left posterior limb of the internal capsule. Seen in consultation by Neurology. MRA cervical vessels did not show any significant stenosis. 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 Echo did not show any mural thrombi. Outpatient cardiac event monitor recommended. Clopidogrel added to aspirin therapy. LDL-C 98. Atorvastatin dose increased. PT, OT, RIB CLOTH KNITTER evaluations obtained. Return to [facility] for ongoing therapies recommended. RECENT CERVICAL SPINE INJURY Continue cervical collar. HYPERTENSION Continue lisinopril. Permissive hypertension in setting of acute ischemic stroke with gradual reduction optimal pressures most appropriate. Continue metoprolol and lisinopril. Amlodipine 2.5 mg daily added to regimen. COPD EXACERBATION Cough and wheezing at time of admission. No infiltrates on chest x-ray. Treated with levofloxacin and steroids. Respiratory status improved. Stopped steroids. Transitioned to oral levofloxacin. DM TYPE 2 Not well-controlled. Hgb A1C 8.1. Fasting blood sugar 214. Discontinue steroids. Continue glimepiride + insulin coverage as necessary. Patient has had problems paying for diabetes meds. Metformin has been recommended and is available as $4 Rx at [facility]. Will add metformin to regimen after her acute hospital stay. HYPOTHYROIDISM Continue levothyroxine. DYSLIPIDEMIA Continue atorvastatin. VTE PROPHYLAXIS SQ heparin. Ambulate. DISPOSITION Arrangements being made for return to [facility] for additional rehab. . Total time spent on discharge = 45 min. This includes examination of the patient, discharge planning, medication reconciliation, and communication with other providers. . Discharge Instructions Date of Service Jan 28, 2017. Admission Reason for Admission: altered mental status Discharge Discharge Diagnosis / Problem: acute ischemic stroke left internal capsule Discharge Goals Goal(s): Improve function, Increase independence, Improve disease control Activity Recommendations Activity Level: Assistance Required Therapies: Physical Therapy, Occupational Therapy, Speech Therapy . Additional Information Patient informed of condition: Yes Advance Directives: No DNR: No Level of Care: Acute Rehab Communicable Disease: No Prognosis: Improving Instructions / Follow-Up Instructions / Follow-Up FOLLOW-UP APPOINTMENTS: RADIOLOGY [facility] 02/04/2017 10:50 AM TRAUMA CLINIC 02/04/2017 11:20 AM Trauma Clinic [address] General Surgery, [place] ORTHOPEDIC SURGERY .02/04/2017 12:15 PM [facility] 02/28/2017 12:30 PM Torie Gutiérrez PA-C NEUROLOGY Dr. Lorenza Londono Thank you for receiving this patient in transfer. Please call if you have any questions. Shiv Pinedo . . Current Hospital Diet Patient's current hospital diet: Diabetes Type 2 Diet Discharge Diet Recommended Diet: AHA Diet (Heart Healthy), Diabetes Type 2 Diet Pending Studies Studies pending at discharge: no Physician Orders On Transfer Special Precautions: fall precautions . Vital Signs: routine . Weigh: routine . Laboratory Results Hemoglobin A1c Test 01/25/17 06:11 Range/Units Estimated Average Glucose 186 mg/dl Hemoglobin A1c 8.1 H 4.5-5.6 % Lipid Panel Test 01/25/17 06:11 Range/Units Triglycerides Level 147 0-150 mg/dl Cholesterol Level 177 0-200 mg/dl HDL Cholesterol 50 mg/dl Cholesterol/HDL Ratio 3.5 LDL Cholesterol, Calculated 98 mg/dl Medical Emergencies . Who to Call and When: Medical Emergencies: If at any time you feel your situation is an emergency, please call 911 immediately. . Non-Emergent Contact Non-Emergency issues call your: Primary Care Provider, Hospital Doctor, Neurologist . . "Provider Documentation" section prepared by Shiv Pinedo. . Core Measure Problem Core Measures: Stroke Stroke Core Measures Reason no t-PA for Stroke: Treatment not indicated Reason no antithrom by day 2: Treatment provided - N/A Reason no antithrom at D/C: Treatment provided - N/A Reason no statin at D/C: Treatment provided - N/A Reason no anticoag w/a fib: Treatment not indicated . Additional Copies To Torie Gutiérrez PA-C; Lorenza Londono M.D.
== END 2017-01-28 16:50 | DRG 65 ==
LOC: C.EDC 20:48 → C.2T 01-24 00:50 → ENRESERV 01-24 00:54 → OBSVTOIN 01-25 21:06 → ENRESERV 01-27 19:18 → C.4E 01-27 19:52
PROVIDERS: ADMIT Internal Medicine; ATTEND Hospitalist
DX: I63.8 Other cerebral infarction (principal); J44.1 Chronic obstructive pulmonary disease with (acute) exacerbation; K21.9 Gastro-esophageal reflux disease without esophagitis; E78.5 Hyperlipidemia, unspecified; E11.319 Type 2 diabetes mellitus with unspecified diabetic retinopathy without macular edema; E03.9 Hypothyroidism, unspecified; F17.200 Nicotine dependence, unspecified, uncomplicated; S22.49XD Multiple fractures of ribs, unspecified side, subsequent encounter for fracture with routine healing; S82.409D Unspecified fracture of shaft of unspecified fibula, subsequent encounter for closed fracture with routine healing; I10 Essential (primary) hypertension; X58.XXXD Exposure to other specified factors, subsequent encounter